=== PATIENT | female | born 1995 | race Caucasian/White ===

== ENCOUNTER 2016-09-22 12:04 | Emergency (ER) | payer BC ==
[2016-09-22 12:14] VITALS: O2SAT 100
[2016-09-22] MEDS ORDERED: Sodium Chloride 0.9% 1000 ML 1,000 ML IV STA (12:36)
[2016-09-22] MEDS ORDERED: Sodium Chloride 0.9% 1000 ML 1,000 ML ONE (12:40)
--- NOTE | 2016-09-22 12:43 | ERPHSYRPT ---
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 had a cookie for breakfast this morning. has had these episodes in the past--last one being 3 weeks ago. slight nauseated and diaphoretic and sob with episodes but denies any s/s besides 'a littel pressure' at epigastric area. skin warm and dry. Physician History: 20-year-old white female arrives with complaints of sudden onset of epigastric pain and chest pressure associated with shortness of breath lasting 5-10 minutes which came on sometime around 11:00 this afternoon while sitting at her desk Patient has no nausea no vomiting patient has had multiple episodes of this she has seen several doctors secondary to this she apparently recently had seen an director nicu Past medical history includes GERD, gallbladder disease, migraines occasional back pain Past surgical history includes cholecystectomy Social history occasional alcohol use Timing/Duration: today (around 11:00 this afternoon) Activities at Onset: other (sitting at desk) Quality: pressure Location: epigastric, other (epigastric and anterior chest) Chest Pain Radiation: no radiation Severity of Pain-Max: moderate Severity of Pain-Current: none Modifying Factors: Improves With: nothing Associated Symptoms: abdominal pain (epigastric pain), shortness of breath, No nausea, No vomiting, No palpitations, No heartburn, No cough, No hurts to breathe, No diaphoresis, No chills, No fever, No fatigue, No weakness, No swelling/lump in chest, No syncope, No headache Prior Chest Pain/Cardiac Workup: recently seen/treated (patient has been seen multiple timesfor same complaint) Nitro Today/Relief: no nitro taken today Aspirin Treatment Today: 81 mg x 4, provided by ED Allergies/Adverse Reactions: ibuprofen [From Advil] Allergy (Verified 09/22/16 12:14) Rash childrens advil Allergy (Uncoded 09/22/16 12:14) Rash Home Medications: Colesevelam HCl [Welchol] 1 tab PO DAILY 01/16/16 [History] Hx Tetanus, Diphtheria Vaccination/Date Given: Yes Hx Influenza Vaccination/Date Given: No Hx Pneumococcal Vaccination/Date Given: No Immunizations Up to Date: Yes - Review of Systems Constitutional: Weakness (patient states she felt very weak like she was going to pass out), No No Symptoms Eyes: No Symptoms Ears, Nose, & Throat: No Symptoms Respiratory: Dyspnea, No Cough, No Cyanosis, No Dyspnea on Exertion (ABEL), No Stridor, No Wheezing Cardiac: Chest Pain (substernal and epigastric pain) Abdominal/Gastrointestinal: Abdominal Pain (epigastric pain), No Nausea, No Vomiting, No Diarrhea, No Constipation, No Hematemesis, No Hematochezia, No Melena, No Dysphagia, No Appetite Changes Genitourinary Symptoms: No Dysuria Musculoskeletal: No Back Pain, No Neck Pain Skin: No Rash Neurological: Other, No Dizziness, No Focal Weakness, No Sensory Changes Psychological: No Symptoms Endocrine: No Symptoms All Other Systems: Reviewed and Negative - Past Medical History Pertinent Past Medical History: Yes Neurological History: Migraines ENT History: No Pertinent History Cardiac History: No Pertinent History Respiratory History: No Pertinent History Endocrine Medical History: No Pertinent History Musculoskeletal History: No Pertinent History GI Medical History: GERD, Gallbladder Disease History: No Pertinent History, Other Psycho-Social History: No Pertinent History Female Reproductive Disorders: Menstrual Problems Other Medical History: heavy periods has chronic uti - Past Surgical History Past Surgical History: Yes Neuro Surgical History: No Pertinent History Cardiac: No Pertinent History Respiratory: No Pertinent History Gastrointestinal: Cholecystectomy Genitourinary: No Pertinent History Musculoskeletal: No Pertinent History Female Surgical History: No Pertinent History - Social History Smoking Status: Never smoker Exposure to second hand smoke: No Drug Use: none Patient Lives Alone: No - Female History Hx Last Menstrual Period: current - Nursing Vital Signs Temperature: 97.9 F Temperature Source: Oral Pulse Rate: 94 Respiratory Rate: 18 Pain Intensity: 5 - Physical Exam General Appearance: no apparent distress, alert Eye Exam: PERRL/EOMI, eyes nml inspection Ears, Nose, Throat Exam: normal ENT inspection, moist mucous membranes Neck Exam: normal inspection, non-tender, supple, full range of motion Respiratory Exam: normal breath sounds, lungs clear, No respiratory distress Cardiovascular Exam: regular rate/rhythm, normal heart sounds Gastrointestinal/Abdomen Exam: soft, No tenderness, No mass Back Exam: normal inspection, No CVA tenderness, No vertebral tenderness Extremity Exam: normal inspection, normal range of motion Neurologic Exam: alert, oriented x 3, cooperative, train planner II-XII nml as tested, normal mood/affect, nml cerebellar function, sensation nml, No motor deficits, No sensory deficit, No disoriented, No confusion, No agitation, No uncooperative , No intoxicated appearance, No depressed mood/affect, No motor weakness, No facial droop, No slurred speech, No aphasia, No dysarthria, No abnormal gait, No abnormal cerebellar tests, No abnormal train planner II-XII Skin Exam: normal color, warm, dry SpO2 Interpretation: normal (100%) SpO2: 100 Oxygen Delivery: Room Air - Course Nursing assessment & vital signs reviewed: Yes EKG Interpreted by Me: RATE (99 bpm), Sinus Rhythm, NORMAL AXIS, Other (EKG: Normal sinus rhythm 99 bpm normal axis, no acute ST or T wave changes essentially normal EKG) - Radiology Exams Chest X-ray Interpretation: Discussed w/ radiologist, Other (portable chest: Normal heart, lungs, and bony thorax) Ordered Tests: Active Orders 24 hr Category Date Time Status Bottle Booth Attendant STAT Care 09/22/16 12:23 Active EKG-ER Only STAT Care 09/22/16 12:22 Active IV Insertion STAT Care 09/22/16 12:22 Active Orthostatic Vital Signs STAT Care 09/22/16 12:21 Active CHEST 1 VIEW (PORTABLE) Stat Exams 09/22/16 12:37 Completed AMYLASE Stat Lab 09/22/16 12:30 Completed CBC W DIFF Stat Lab 09/22/16 12:30 Completed CMP Stat Lab 09/22/16 12:30 Completed HCG QUALITATIVE,SERUM Stat Lab 09/22/16 12:30 Completed LIPASE Stat Lab 09/22/16 12:30 Completed TROPONIN Stat Lab 09/22/16 12:30 Completed TROPONIN Stat Lab 09/22/16 15:03 Completed Medication Summary Discontinued Medications Generic Name Dose Route Start Last Admin Trade Name Freq PRN Reason Stop Dose Admin Aspirin 324 mg 09/22/16 12:57 09/22/16 12:59 Baby Aspirin 81 Mg Chew PO 09/22/16 12:58 324 mg STAT ONE Administration Aspirin Confirm 09/22/16 12:59 Baby Aspirin 81 Mg Chew Administered 09/22/16 13:00 Dose 324 mg .ROUTE .STK-MED ONE Sodium Chloride 1,000 mls @ 999 mls/hr 09/22/16 12:36 09/22/16 12:42 Sodium Chloride 0.9% 1000 Ml IV 09/22/16 13:36 999 mls/hr .Q1H1M STA Administration Sodium Chloride Confirm 09/22/16 12:40 Sodium Chloride 0.9% 1000 Ml Administered 09/22/16 12:41 Dose 1,000 mls @ ud .ROUTE .STK-MED ONE Lab/Rad Data: Laboratory Result Diagrams 09/22/16 12:30 09/22/16 12:30 Laboratory Results 09/22/16 09/22/16 09/22/16 Range/Units 15:03 12:30 12:30 WBC (4.0-10.5) K/mm3 RBC (4.1-5.4) M/mm3 Hgb (12.0-16.0) gm/dl Hct (35-47) % MCV (78-100) fl MCH (26-32) pg MCHC (32-36) g/dl RDW (11.5-14.0) % Plt Count (150-450) K/mm3 MPV (6-9.5) fl Gran % (36.0-66.0) % Lymphocytes % (24.0-44.0) % Monocytes % (0.0-12.0) % Eosinophils % (0.00-5.0) % Basophils % (0.0-0.4) % Basophils # (0-0.4) Sodium 139 (136-145) mEq/L Potassium 3.7 (3.5-5.1) mEq/L Chloride 102 (98-107) mEq/L Carbon Dioxide 25.5 (21-32) mEq/L Anion Gap 14.8 (5-15) MEQ/L BUN 7 L (9-20) mg/dL Creatinine 0.84 (0.55-1.30) mg/dl Estimated GFR > 60 ML/MIN Glucose 89 (70-110) MG/DL Calcium 9.0 (8.5-10.1) mg/dL Total Bilirubin 0.4 (0.2-1.0) mg/dL AST 15 (15-37) U/L ALT 20 (12-78) U/L Alkaline Phosphatase 62 (46-116) U/L Troponin I < 0.017 < 0.017 (0.000-0.056) ng/ml Serum Total Protein 7.9 (6.4-8.2) gm/dL Albumin 4.1 (3.4-5.0) g/dL Amylase 50 (25-115) U/L Lipase 171 (73-393) U/L Serum , Qual NEGATIVE (Negative) 09/22/16 Range/Units 12:30 WBC 7.2 (4.0-10.5) K/mm3 RBC 4.30 (4.1-5.4) M/mm3 Hgb 10.1 L (12.0-16.0) gm/dl Hct 33.9 L (35-47) % MCV 78.8 (78-100) fl MCH 23.4 L (26-32) pg MCHC 29.8 L (32-36) g/dl RDW 16.9 H (11.5-14.0) % Plt Count 422 (150-450) K/mm3 MPV 11.5 H (6-9.5) fl Gran % 46.0 (36.0-66.0) % Lymphocytes % 46.3 H (24.0-44.0) % Monocytes % 6.4 (0.0-12.0) % Eosinophils % 0.7 (0.00-5.0) % Basophils % 0.6 (0.0-0.4) % Basophils # 0.04 (0-0.4) Sodium (136-145) mEq/L Potassium (3.5-5.1) mEq/L Chloride (98-107) mEq/L Carbon Dioxide (21-32) mEq/L Anion Gap (5-15) MEQ/L BUN (9-20) mg/dL Creatinine (0.55-1.30) mg/dl Estimated GFR ML/MIN Glucose (70-110) MG/DL Calcium (8.5-10.1) mg/dL Total Bilirubin (0.2-1.0) mg/dL AST (15-37) U/L ALT (12-78) U/L Alkaline Phosphatase (46-116) U/L Troponin I (0.000-0.056) ng/ml Serum Total Protein (6.4-8.2) gm/dL Albumin (3.4-5.0) g/dL Amylase (25-115) U/L Lipase (73-393) U/L Serum , Qual (Negative) - Progress Progress: improved Air Movement: fair Progress Note: 09/22/16 12:52 20-year-old white female who has had multiple episodes of epigastric and substernal pain which has been worked up by various physicians. Arrives with complaint of pain in the epigastric region and substernal area which began around 11:00 for (patient is not sure) lasting 5-10 minutes. Arrives without pain. Patient just recently had complained of having recurrence of her pain monitor shows no change I've offered patient morphine for her pain she states she does not want any now. Patient was mildly orthostatic she did state that she felt the like she was going to pass out earlier when she was having her pain. Patient is being given IV fluids troponin CBC CMP hCG are pending chest x-ray will be shot after hCG is obtained. 09/22/16 13:17 Patient pain-free at this time. Patient has had no arrhythmias on monitor. Troponin within normal limits. Will repeat troponin 3 hours from last draw. 09/22/16 15:34 Patient with no further complaints. Repeat troponin is negative. Will discharge. - Departure Time of Disposition: 15:35 Departure Disposition: Home Clinical Impression: Mild dehydration Chest pain Qualifiers: Chest pain type: unspecified Qualified Code(s): R07.9 - Chest pain, unspecified Condition: Fair Critical Care Time: No Additional Instructions: Return home. Plenty of fluids. Rest. Follow-up with your family doctor. Return for acute distress or for severe symptoms.
[2016-09-22 12:46] LABS: BASOPHIL % 0.6 % (0.0-0.4); Eosinophil % 0.7 % (0.00-5.0); Lymphocytes % 46.3 % (24.0-44.0); Mean Cell Volume 78.8 fl (78-100); Mean Platelet Volume 11.5 fl (6-9.5); Monocytes % 6.4 % (0.0-12.0); Platelet Count 422 K/mm3 (150-450); Red Cell Distribution Width 16.9 % (11.5-14.0); White Blood Count 7.2 K/mm3 (4.0-10.5)
[2016-09-22 12:47] LABS: Mean Corpuscular Hemoglobin 23.4 pg (26-32)
[2016-09-22] MEDS ORDERED: BABY ASPIRIN 81 MG CHEW PO ONE (12:57)
[2016-09-22] MEDS ORDERED: BABY ASPIRIN 81 MG CHEW ONE (12:59)
--- NOTE | 2016-09-22 13:00 | XRAY ---
Indication: Epigastric pain. Comparison: None Portable chest demonstrates normal heart, lungs, and bony thorax.
[2016-09-22 13:06] LABS: ALBUMIN 4.1 g/dL (3.4-5.0); ALKALINE PHOSPHATASE 62 U/L (46-116); ANION GAP 14.8 MEQ/L (5-15); BILIRUBIN,TOTAL 0.4 mg/dL (0.2-1.0); BLOOD UREA NITROGEN 7 mg/dL (9-20); CHLORIDE 102 mEq/L (98-107); Carbon Dioxide 25.5 mEq/L (21-32); Glucose 89 MG/DL (70-110); LIPASE 171 U/L (73-393); Potassium 3.7 mEq/L (3.5-5.1); SGOT/AST 15 U/L (15-37); SGPT/ALT 20 U/L (12-78); SODIUM 139 mEq/L (136-145); Total Protein 7.9 gm/dL (6.4-8.2)
[2016-09-22 13:10] LABS: TROPONIN < 0.017 ng/ml (0.000-0.056)
[2016-09-22 16:04] VITALS: BP 117/90; PULSE 91
== END 2016-09-22 16:05 | disposition home or self-care (01) ==
LOC: ED 12:04
DX: R07.89 Other chest pain (principal); E86.0 Dehydration; R10.13 Epigastric pain; R06.02 Shortness of breath
CPT/HCPCS: 36000; 36415; 71010; 80053; 82150; 83690; 84484; 84703; 85025; 93005; 93041; 96360; 99284; 99285; A9270-GY

== ENCOUNTER 2018-04-06 01:25 | Emergency (ER) | payer BC ==
--- NOTE | 2018-04-06 01:56 | ERPHSYRPT ---
- History of Present Illness Time Seen by Provider: 04/06/18 01:35 Historian: patient Exam Limitations: clinical condition Patient Subjective Stated Complaint: pt is alert and oriented. pt is ambulatory. pt comes in with c/o lower right abdomenal cramping. pt describes pain as a "pulling". pt was at work all night and began having cramping around 2330. pt is 9 weeks . pt denies vomitting, diarrhea, vaginal discharge or bleeding. pt bowel sounds present and active. Triage Nursing Assessment: see above Physician History: PATIENT IS A -1, PARA-0, -0, 9 WEEKS GESTATION WITH ULTRASOUND AT 03/21/2018 CONSISTED WITH INTRAUTERINE SINGLE UTERINE SAC OF 6 WEEKS- 5 DAYS GESTATION AND BILATERAL OVARIES NEGATIVE. PATIENT COMPLAINS OF LOWER MID ABDOMINAL PAIN, ASSOCIATED WITH NAUSEA, FREQUENCY, URGENCY AND DYSURIA. DENIES FEVER, EMESIS, DIARRHEA FLANK PAIN, VAGINAL BLEEDING OR DISCHARGE. Timing/Duration: day(s) Activities at Onset: none Quality: throbbing Abdominal Pain Onset Location: RLQ, suprapubic Pain Radiation: no radiation Severity of Pain-Max: moderate Severity of Pain-Current: moderate Associated Symptoms: nausea Previous symptoms: no prior history Allergies/Adverse Reactions: ibuprofen [From Advil] Allergy (Verified 09/22/16 12:14) Rash Penicillins Allergy (Verified 04/06/18 01:41) Anaphylactic Reaction childrens advil Allergy (Uncoded 09/22/16 12:14) Rash Home Medications: Vits W-Ca,Fe,FA(<1Mg) [] 1 tab PO DAILY 04/06/18 [History] Hx Tetanus, Diphtheria Vaccination/Date Given: Yes Hx Influenza Vaccination/Date Given: No Hx Pneumococcal Vaccination/Date Given: No Immunizations Up to Date: Yes - Review of Systems Constitutional: No Fever, No Chills Eyes: No Symptoms Ears, Nose, & Throat: No Symptoms Respiratory: No Symptoms, No Cough, No Dyspnea Cardiac: No Symptoms, No Chest Pain, No Edema, No Syncope Abdominal/Gastrointestinal: No Abdominal Pain, No Nausea, No Vomiting, No Diarrhea Genitourinary Symptoms: Dysuria, Frequency, Urgency Musculoskeletal: No Back Pain, No Neck Pain Skin: No Rash Neurological: No Dizziness, No Focal Weakness, No Sensory Changes Psychological: No Symptoms Endocrine: No Symptoms All Other Systems: Reviewed and Negative - Past Medical History Pertinent Past Medical History: Yes Neurological History: Migraines ENT History: No Pertinent History Cardiac History: No Pertinent History Respiratory History: No Pertinent History Endocrine Medical History: No Pertinent History Musculoskeletal History: No Pertinent History GI Medical History: GERD, Gallbladder Disease History: No Pertinent History, Other Psycho-Social History: No Pertinent History Female Reproductive Disorders: Menstrual Problems Other Medical History: heavy periods has chronic uti - Past Surgical History Past Surgical History: Yes Neuro Surgical History: No Pertinent History Cardiac: No Pertinent History Respiratory: No Pertinent History Gastrointestinal: Cholecystectomy Genitourinary: No Pertinent History Musculoskeletal: No Pertinent History Female Surgical History: No Pertinent History Other Surgical History: EGD. - Social History Smoking Status: Never smoker Exposure to second hand smoke: Yes Drug Use: none Patient Lives Alone: No - Female History Hx Now: Yes Expected Date of Delivery: 11/09/17 - Nursing Vital Signs Nursing Vital Signs: Initial Vital Signs Pulse Rate 89 04/06/18 01:26 Respiratory Rate 18 04/06/18 01:26 Blood Pressure 117/81 04/06/18 01:26 O2 Sat by Pulse Oximetry 100 04/06/18 01:26 Pain Scale Pain Intensity 5 - Physical Exam General Appearance: no apparent distress, alert Eye Exam: PERRL/EOMI, eyes nml inspection Ears, Nose, Throat Exam: normal ENT inspection, pharynx normal, moist mucous membranes Neck Exam: normal inspection, non-tender, supple, full range of motion Respiratory Exam: normal breath sounds, lungs clear, No respiratory distress Cardiovascular Exam: regular rate/rhythm, normal heart sounds Gastrointestinal/Abdomen Exam: soft, normal bowel sounds, tenderness ( TENDERNESS RIGHT LATERAL SUPRAPUBIC,), rebound, No mass Pelvic Exam: normal external exam, other (UTERUS ENLARGED TO 9 WEEKS, RIGHT ADNEXAL TENDERNESS) Back Exam: normal inspection, normal range of motion, No CVA tenderness, No vertebral tenderness Extremity Exam: normal inspection, normal range of motion, pelvis stable Neurologic Exam: alert, oriented x 3, cooperative, normal mood/affect, nml cerebellar function, sensation nml, No motor deficits Skin Exam: normal color, warm, dry SpO2: 100 Oxygen Delivery: Room Air Ordered Tests: Active Orders 24 hr Category Date Time Status CBC W DIFF Stat Lab 04/06/18 02:30 Completed UA W/RFX UR CULTURE Stat Lab 04/06/18 02:13 Completed Medication Summary Generic Name Dose Route Start Last Admin Trade Name Frankie PRN Reason Stop Dose Admin Acetaminophen 650 mg 04/06/18 03:34 Tylenol 325 Mg PO 04/06/18 03:35 STAT STA Sodium Chloride 1,000 mls @ 200 mls/hr 04/06/18 02:30 04/06/18 02:41 Sodium Chloride 0.9% 1000 Ml IV 05/06/18 02:29 200 mls/hr .Q5H TOM Administration Discontinued Medications Generic Name Dose Route Start Last Admin Trade Name Frankie PRN Reason Stop Dose Admin Ondansetron HCl 4 mg 04/06/18 02:21 04/06/18 02:41 Zofran 4 Mg/2 Ml Vial IV 04/06/18 02:22 4 mg STAT ONE Administration Ondansetron HCl Confirm 04/06/18 02:36 Zofran 4 Mg/2 Ml Vial Administered 04/06/18 02:37 Dose 4 mg .ROUTE .STK-MED ONE Lab/Rad Data: Laboratory Result Diagrams 04/06/18 02:30 Laboratory Results 04/06/18 04/06/18 Range/Units 02:30 02:13 WBC 10.8 H (4.0-10.5) K/mm3 RBC 3.56 L (4.1-5.4) M/mm3 Hgb 8.9 L (12.0-16.0) gm/dl Hct 28.5 L (35-47) % MCV 80.1 (78-100) fl MCH 25.0 L (26-32) pg MCHC 31.2 L (32-36) g/dl RDW 17.4 H (11.5-14.0) % Plt Count 311 (150-450) K/mm3 MPV 11.4 H (6-9.5) fl Gran % 62.8 (36.0-66.0) % Eos # (Auto) 0.06 (0-0.5) Absolute Lymphs (auto) 3.10 (1.0-4.6) Absolute Monos (auto) 0.83 (0.0-1.3) Lymphocytes % 28.7 (24.0-44.0) % Monocytes % 7.7 (0.0-12.0) % Eosinophils % 0.6 (0.00-5.0) % Basophils % 0.2 (0.0-0.4) % Absolute Granulocytes 6.81 (1.4-6.9) Basophils # 0.02 (0-0.4) Urine Color YELLOW (YELLOW) Urine Appearance CLEAR (CLEAR) Urine pH 7.0 (5-6) Ur Specific [place] 1.011 (1.005-1.025) Urine Protein NEGATIVE (Negative) Urine Ketones TRACE (NEGATIVE) Urine Blood NEGATIVE (0-5) Brent/ul Urine Nitrite NEGATIVE (NEGATIVE) Urine Bilirubin NEGATIVE (NEGATIVE) Urine Urobilinogen NORMAL (0-1) mg/dL Ur Leukocyte Esterase TRACE (NEGATIVE) Urine WBC (Auto) 6-10 (0-5) /HPF Urine RBC (Auto) NONE SEEN (0-2) /HPF U Epithel Cells (Auto) RARE (FEW) /HPF Urine Bacteria (Auto) NONE SEEN (NEGATIVE) /HPF Amorphous Crystals FEW (NEGATIVE) /HPF Urine Mucus (Auto) SLIGHT (NEGATIVE) /HPF Urine Culture Reflexed NO (NO) Urine Glucose NEGATIVE (NEGATIVE) mg/dL - Progress Progress: pain not gone completely Progress Note: 04/06/18 03:38 IV NORMAL SALINE 200ML/HR, ZOFRAN 4MG IV, ORAL TYLENOL 650MG, MACROBID 100MG Counseled pt/family regarding: lab results, diagnosis, need for follow-up, rad results - Departure Time of Disposition: 04:00 Departure Disposition: Home Clinical Impression: URINARY TRACT INFECTION, Condition: Stable Critical Care Time: No Referrals: RAGHAV WOOD [Primary Care Provider] - Additional Instructions: ANTIBIOTIC MACROBID 100MG TWICE DAILY FOR 10 DAYS. TYLENOL EVERY 4 HOURS NEEDED FOR PAIN. FOLLOWUP WITH DR WOOD TODAY. RETURN TO EMERGENCY ROOM FOR INCREASING PAIN, ONSET OF VOMITING OR FEVER. Prescriptions: Nitrofurantoin Macro 100 mg [Macrobid 100MG Capsule] 100 mg PO BID #20 capsule
[2018-04-06] MEDS ORDERED: Zofran 4 MG/2 ML VIAL IV ONE (02:21)
[2018-04-06 02:24] LABS: Appearance CLEAR (CLEAR); Bilirubin NEGATIVE (NEGATIVE); Blood NEGATIVE Ery/ul (0-5); Glucose NEGATIVE (NEGATIVE); Ketones TRACE (NEGATIVE); Leukocyte Esterase TRACE (NEGATIVE); Nitrite NEGATIVE (NEGATIVE); Protein,Urine Dip NEGATIVE (Negative); Specific Gravity 1.011 (1.005-1.025); Urobilinogen NORMAL mg/dL (0-1)
[2018-04-06] MEDS ORDERED: Sodium Chloride 0.9% 1000 ML 1,000 ML IV SCH (02:30)
[2018-04-06] MEDS ORDERED: Zofran 4 MG/2 ML VIAL ONE (02:36)
[2018-04-06] MEDS ORDERED: Sodium Chloride 0.9% 1000 ML 1,000 ML ONE (02:36)
[2018-04-06 02:40] LABS: BASOPHIL % 0.2 % (0.0-0.4); Basophil (Absolute #) 0.02 (0-0.4); Eosinophil % 0.6 % (0.00-5.0); Eosinophil (Absolute #) 0.06 (0-0.5); Granulocyte Absolute (ANC) 6.81 (1.4-6.9); Granulocytes % 62.8 % (36.0-66.0); Hematocrit 28.5 % (35-47); Hemoglobin 8.9 gm/dl (12.0-16.0); Lymphocytes % 28.7 % (24.0-44.0); Mean Cell Volume 80.1 fl (78-100); Mean Corpuscular Hgb Concent. 31.2 g/dl (32-36); Mean Platelet Volume 11.4 fl (6-9.5); Monocyte (Absolute #) 0.83 (0.0-1.3); Monocytes % 7.7 % (0.0-12.0); Platelet Count 311 K/mm3 (150-450); Red Blood Count 3.56 M/mm3 (4.1-5.4); Red Cell Distribution Width 17.4 % (11.5-14.0); White Blood Count 10.8 K/mm3 (4.0-10.5)
[2018-04-06] MEDS ORDERED: TYLENOL 325 MG PO STA (03:34)
[2018-04-06] MEDS ORDERED: Macrobid 100MG Capsule PO ONE (03:35)
[2018-04-06] MEDS ORDERED: Macrobid 100MG Capsule ONE (03:38)
[2018-04-06] MEDS ORDERED: TYLENOL 325 MG ONE (03:38)
[2018-04-06 03:43] VITALS: O2SAT 100
[2018-04-06 04:00] VITALS: BP 104/70; PULSE 76
== END 2018-04-06 04:07 | disposition home or self-care (01) ==
LOC: ED 01:25
DX: O23.41 Unspecified infection of urinary tract in pregnancy, first trimester (principal); Z3A.09 9 weeks gestation of pregnancy
CPT/HCPCS: 36415; 81001; 85025; 96360; 96374; 99284; J2405; A9270-GY

== ENCOUNTER 2018-07-31 13:00 | Observation (INO) | payer BC ==
[2018-07-31 15:13] LABS: Appearance CLOUDY (CLEAR); Bacteria RARE /HPF (NEGATIVE); Bilirubin NEGATIVE (NEGATIVE); Blood SMALL Ery/ul (0-5); Epithelial Cells RARE /HPF (FEW); Glucose 50 mg/dL (NEGATIVE); Ketones NEGATIVE (NEGATIVE); Leukocyte Esterase SMALL (NEGATIVE); Mucus SLIGHT /HPF (NEGATIVE); Nitrite NEGATIVE (NEGATIVE); Protein,Urine Dip NEGATIVE (Negative); RBC 0-2 /HPF (0-2); Specific Gravity 1.013 (1.005-1.025); Urobilinogen NEGATIVE mg/dL (0-1); WBC 0-2 /HPF (0-5)
--- NOTE | 2018-07-31 16:24 | XRAY ---
Indication: well-being. Round vaginal discharge. Two-dimensional OB ultrasound performed. Comparison: June 07, 2016. Again there is a single viable intrauterine now in breech presentation. Normal four-chamber heart with heart rate 145 BPM. anatomy including including umbilical cord previously documented. Posterior placenta without abruption/previa. BPD measures 6.07 cm corresponding to 24 weeks 5 days. HC measures 22.77 cm corresponding to 24 weeks 6 days. AC measures 20.64 cm corresponding to 25 weeks 2 days. FL measures 4.67 cm corresponding to 25 weeks 4 days. SULEMA is 14.4 cm. Impression: Again single viable intrauterine with mean gestational age 25 weeks 1 day. Normal progression of . No new/acute findings.
[2018-07-31 17:57] VITALS: BP 91/63; PULSE 96
== END 2018-07-31 16:30 | disposition home or self-care (01) ==
LOC: UNDOADMOB 13:00 → MED SURG 13:00 → UNDODISOB 16:30
PROVIDERS: ADMIT Family Medicine; ATTEND Family Medicine
DX: Z34.02 Encounter for supervision of normal first pregnancy, second trimester (principal)
CPT/HCPCS: 76805; 81001; 87086; G0378

== ENCOUNTER 2018-09-08 09:53 | Observation (INO) | payer BC ==
[2018-09-08] MEDS ORDERED: Lactated Ringers 1,000 ML IV ONE (11:14)
[2018-09-08 11:53] LABS: Hematocrit 24.9 % (35-47); Hemoglobin 7.6 gm/dl (12.0-16.0); Mean Cell Volume 83.3 fl (78-100); Mean Corpuscular Hemoglobin 25.4 pg (26-32); Mean Corpuscular Hgb Concent. 30.5 g/dl (32-36); Mean Platelet Volume 9.8 fl (6-9.5); Platelet Count 250 K/mm3 (150-450); Red Blood Count 2.99 M/mm3 (4.1-5.4); Red Cell Distribution Width 15.3 % (11.5-14.0); White Blood Count 10.3 K/mm3 (4.0-10.5)
[2018-09-08 12:06] LABS: ALBUMIN 3.2 g/dL (3.5-5.0); ALKALINE PHOSPHATASE 87 U/L (38-126); ANION GAP 11.9 MEQ/L (5-15); BLOOD UREA NITROGEN 4 mg/dL (7-17); CHLORIDE 106 mmol/L (98-107); Calcium 8.7 mg/dL (8.4-10.2); Carbon Dioxide 23 mmol/L (22-30); Creatinine 1 0.56 mg/dL (0.52-1.04); Glucose 79 mg/dL (74-106); Potassium 3.8 mmol/L (3.5-5.1); SGOT/AST 19 U/L (14-36); SGPT/ALT 12 U/L (0-35); SODIUM 137 mmol/L (137-145); Total Protein 6.4 g/dL (6.3-8.2)
[2018-09-08 12:11] LABS: BAND 5 % (0.0-2.0); Basophil 1 % (0.0-1.0); Lymphocytes 25 % (24-44); Monocyte 4 % (0.0-12.0); Neutrophils 65 % (36.0-66.0); Total Cells Counted 100
[2018-09-08 12:13] LABS: Hypochromia 1+; Platelet Estimate NORMAL (NORMAL); Polychromasia 1+
[2018-09-08 12:36] LABS: Appearance SLIGHTLY CLOUDY (CLEAR); Bacteria FEW /HPF (NEGATIVE); Bilirubin NEGATIVE (NEGATIVE); Blood NEGATIVE Ery/ul (0-5); Epithelial Cells FEW /HPF (FEW); Glucose NEGATIVE (NEGATIVE); Ketones NEGATIVE (NEGATIVE); Leukocyte Esterase LARGE (NEGATIVE); Mucus SLIGHT /HPF (NEGATIVE); Nitrite NEGATIVE (NEGATIVE); Protein,Urine Dip NEGATIVE (Negative); RBC 0-2 /HPF (0-2); Specific Gravity 1.014 (1.005-1.025); Urobilinogen NEGATIVE mg/dL (0-1); WBC 26-50 /HPF (0-5)
[2018-09-08] MEDS: Lactated Ringers 1,000 ML IV SCH ×2 (12:58→21:33)
[2018-09-08] MEDS ORDERED: BRETHINE 1 MG/ML SQ ONE (13:14)
[2018-09-08] MEDS: Phenergan 25 MG INJ IV PRN (15:05)
--- NOTE | 2018-09-08 15:27 | XRAY ---
Indication: labor. Evaluate cervical length. Two-dimensional OB ultrasound performed. Comparison: July 31, 2018. Again there is a single viable intrauterine now in cephalic presentation. heart rate 138 BPM. anatomy including including umbilical cord previously documented. Visualized stomach and bladder are unremarkable. Posterior placenta without abruption/previa. Cervix is closed measuring 4.2 cm in length. BPD measures 8.26 cm corresponding to 33 weeks 2 days. HC measures 29.13 cm corresponding to 32 weeks 1 day. AC measures 25.66 cm corresponding to 29 weeks 6 days. FL measures 5.94 cm corresponding to 31 weeks 0 day. SULEMA is 8.5 cm. Impression: Again single viable intrauterine with mean gestational age 31 weeks 4 days. Normal progression of . No new/acute findings. Cervical length is 4.2 cm.
[2018-09-08] MEDS: ROCEPHIN 1 Gm-D5w 50 ml Bag** 1 G/50 ML IVPB IV SCH ×2 (15:44→18:00)
[2018-09-08] MEDS ORDERED: PROCARDIA 10 MG PO ONE (16:14)
[2018-09-08] MEDS: PROCARDIA 10 MG PO SCH (21:07)
[2018-09-08] MEDS: TYLENOL 325 MG PO PRN (21:12)
[2018-09-09] MEDS: Phenergan 25 MG INJ IV PRN (01:43)
[2018-09-09] MEDS: TYLENOL 325 MG PO PRN (03:18)
[2018-09-09] MEDS: Lactated Ringers 1,000 ML IV SCH (05:43)
[2018-09-09] MEDS: PROCARDIA 10 MG PO SCH ×3 (09:14→14:28)
[2018-09-09 09:47] VITALS: PULSE 85
[2018-09-09] MEDS: ROCEPHIN 1 Gm-D5w 50 ml Bag** 1 G/50 ML IVPB IV SCH (11:34)
[2018-09-09 12:51] LABS: ANION GAP 9.8 MEQ/L (5-15); BLOOD UREA NITROGEN 3 mg/dL (7-17); CHLORIDE 109 mmol/L (98-107); Calcium 8.2 mg/dL (8.4-10.2); Carbon Dioxide 22 mmol/L (22-30); Creatinine 1 0.49 mg/dL (0.52-1.04); Glucose 72 mg/dL (74-106); Potassium 3.5 mmol/L (3.5-5.1); SODIUM 137 mmol/L (137-145)
[2018-09-09 13:12] LABS: Hematocrit 22.1 % (35-47); Mean Cell Volume 85.3 fl (78-100); Mean Corpuscular Hgb Concent. 29.4 g/dl (32-36); Mean Platelet Volume 10.5 fl (6-9.5); Platelet Count 229 K/mm3 (150-450); Red Blood Count 2.59 M/mm3 (4.1-5.4); Red Cell Distribution Width 15.2 % (11.5-14.0); White Blood Count 6.8 K/mm3 (4.0-10.5)
[2018-09-09 13:15] LABS: Hemoglobin 6.5 gm/dl (12.0-16.0)
[2018-09-09] MEDS ORDERED: Celestone Soluspan 6MG/ML IM ONE (13:32)
[2018-09-09 14:06] VITALS: BP 98/54
[2018-09-09 16:22] LABS: Lymphocytes 33 % (24-44); Monocyte 5 % (0.0-12.0); Neutrophils 62 % (36.0-66.0); Platelet Estimate NORMAL (NORMAL); Total Cells Counted 100
[2018-09-09 16:23] LABS: Hypochromia 1+; Microcytosis 1+
== END 2018-09-09 16:45 | disposition home or self-care (01) ==
LOC: OB 09:53
PROVIDERS: ADMIT Family Medicine; ATTEND Family Medicine
DX: O23.43 Unspecified infection of urinary tract in pregnancy, third trimester (principal); Z3A.31 31 weeks gestation of pregnancy; R10.13 Epigastric pain; R10.11 Right upper quadrant pain
CPT/HCPCS: 36415; 76805; 80048; 80053; 81001; 85025; 87086; G0378; J0696; J0702; J2550; A9270-GY

== ENCOUNTER 2018-09-18 16:42 | Observation (INO) | payer BC ==
[2018-09-18] MEDS ORDERED: Sodium Chloride 0.9% 1000 ML 1,000 ML IV STA (17:19)
[2018-09-18] MEDS ORDERED: MORPHINE SULFATE 10 MG/ML IV ONE (18:46)
[2018-09-18] MEDS: Lactated Ringers 1,000 ML IV SCH (18:49)
[2018-09-18] MEDS: Phenergan 25 MG INJ IV ONE ×2 (18:49→18:58)
[2018-09-18 19:12] LABS: Appearance SLIGHTLY CLOUDY (CLEAR); Bacteria MODERATE /HPF (NEGATIVE); Bilirubin NEGATIVE (NEGATIVE); Blood NEGATIVE Ery/ul (0-5); Epithelial Cells MODERATE /HPF (FEW); Glucose 50 mg/dL (NEGATIVE); Ketones NEGATIVE (NEGATIVE); Leukocyte Esterase LARGE (NEGATIVE); Nitrite NEGATIVE (NEGATIVE); Protein,Urine Dip NEGATIVE (Negative); RBC 0-2 /HPF (0-2); Specific Gravity 1.014 (1.005-1.025); Urobilinogen NEGATIVE mg/dL (0-1); WBC 26-50 /HPF (0-5)
[2018-09-18] MEDS ORDERED: Zofran 4 MG/2 ML VIAL IV PRN (19:34)
[2018-09-18] MEDS: Maxipime 2 GM** 2 G in Dextrose 5%/Water IV Soln. 100ML PLUS BAG 100 ML IV SCH (19:57)
[2018-09-18] MEDS ORDERED: PROTONIX 40 MG IV IV ONE (20:22)
[2018-09-18 20:52] VITALS: O2SAT 99
[2018-09-18 21:02] LABS: ALBUMIN 2.9 g/dL (3.5-5.0); ALKALINE PHOSPHATASE 80 U/L (38-126); ANION GAP 9.4 MEQ/L (5-15); BLOOD UREA NITROGEN 4 mg/dL (7-17); CHLORIDE 108 mmol/L (98-107); Calcium 8.6 mg/dL (8.4-10.2); Carbon Dioxide 22 mmol/L (22-30); Creatinine 1 0.46 mg/dL (0.52-1.04); Glucose 99 mg/dL (74-106); Potassium 3.8 mmol/L (3.5-5.1); SGOT/AST 21 U/L (14-36); SGPT/ALT 17 U/L (0-35); SODIUM 135 mmol/L (137-145); Total Protein 5.9 g/dL (6.3-8.2)
[2018-09-18] MEDS: PROCARDIA 10 MG PO SCH (21:51)
[2018-09-19] MEDS: Maxipime 2 GM** 2 G in Dextrose 5%/Water IV Soln. 100ML PLUS BAG 100 ML IV SCH ×2 (03:32→11:53)
[2018-09-19] MEDS: Lactated Ringers 1,000 ML IV SCH (03:32)
[2018-09-19] MEDS: PROCARDIA 10 MG PO SCH (10:53)
[2018-09-19 12:58] VITALS: BP 92/57; PULSE 90
[2018-09-20 12:29] LABS: Hematocrit 27.5 % (35-47); Hemoglobin 8.3 gm/dl (12.0-16.0); Mean Cell Volume 91.1 fl (78-100); Mean Corpuscular Hgb Concent. 30.2 g/dl (32-36); Mean Platelet Volume 10.9 fl (6-9.5); Platelet Count 269 K/mm3 (150-450); Red Blood Count 3.02 M/mm3 (4.1-5.4); Red Cell Distribution Width 23.2 % (11.5-14.0); White Blood Count 11.2 K/mm3 (4.0-10.5)
[2018-09-20 12:46] LABS: Mean Corpuscular Hemoglobin 27.4 pg (26-32)
[2018-09-20 13:54] LABS: BAND 1 % (0.0-2.0); Lymphocytes 28 % (24-44); Monocyte 2 % (0.0-12.0); Neutrophils 69 % (36.0-66.0); Nucleated Red Blood Cell 2 %; Total Cells Counted 100
[2018-09-20 13:55] LABS: ANISOCYTOSIS 2+; Basophilic Stippling RARE; Platelet Estimate NORMAL (NORMAL); Polychromasia 2+
[2018-09-20 13:56] LABS: Poikilocytosis 1+; Toxic Granulation 1+
--- NOTE | 2018-09-20 14:03 | XRAY ---
Indication: Evaluate cervical length. Limited OB ultrasound performed to evaluate cervical length. Cervix is closed measuring 3.7 cm in length.
== END 2018-09-19 13:08 | disposition home or self-care (01) ==
LOC: OB 16:42
PROVIDERS: ADMIT Family Medicine; ATTEND Family Medicine
DX: O23.43 Unspecified infection of urinary tract in pregnancy, third trimester (principal); Z3A.33 33 weeks gestation of pregnancy
CPT/HCPCS: 36415; 59025; 80053; 81001; 85025; 87086; G0378; 76815; J0692; J2270; A9270-GY

== ENCOUNTER 2018-09-28 00:45 | Observation (INO) | payer BC ==
[2018-09-28 01:12] VITALS: O2SAT 100
[2018-09-28 01:20] LABS: Amphetamine,Urine NEGATIVE (NEGATIVE); Barbiturate,Urine NEGATIVE (NEGATIVE); Benzodiazepine,Urine NEGATIVE (NEGATIVE); Cocaine,Urine NEGATIVE (NEGATIVE); Methadone,Urine NEGATIVE (NEGATIVE); Opiate,Urine NEGATIVE (NEGATIVE); PCP,Urine NEGATIVE (NEGATIVE); THC,Urine NEGATIVE (NEGATIVE)
[2018-09-28 01:23] LABS: Appearance CLOUDY (CLEAR); Bilirubin NEGATIVE (NEGATIVE); Blood NEGATIVE Ery/ul (0-5); Epithelial Cells RARE /HPF (FEW); Glucose NEGATIVE (NEGATIVE); Ketones NEGATIVE (NEGATIVE); Leukocyte Esterase TRACE (NEGATIVE); Mucus SLIGHT /HPF (NEGATIVE); Nitrite NEGATIVE (NEGATIVE); Protein,Urine Dip NEGATIVE (Negative); Specific Gravity 1.009 (1.005-1.025); Urobilinogen NEGATIVE mg/dL (0-1)
[2018-09-28] MEDS ORDERED: TYLENOL 325 MG PO PRN (02:15)
[2018-09-28] MEDS ORDERED: BRETHINE 1 MG/ML SQ ONE ×2 (02:16→05:56)
[2018-09-28] MEDS ORDERED: Sodium Chloride 0.9% 1000 ML 1,000 ML IV STA (02:18)
[2018-09-28] MEDS ORDERED: Lactated Ringers 1,000 ML IV SCH (02:30)
--- NOTE | 2018-09-28 09:18 | XRAY ---
Indication: Back pain. 34 weeks . Two-dimensional renal sonogram performed. Comparison: None Both kidneys normal in reniform shape. Right kidney measures 9.3 x 4.2 x 4.6 cm and the left measures 8.9 x 4.2 x 4.7 cm. No solid/cystic renal mass or perinephric fluid. Cortical medullary differentiation preserved without cortical thinning. Images of the urinary bladder grossly unremarkable with normal bilateral ureteral jets. Impression: Negative renal sonogram.
[2018-09-28 09:40] VITALS: BP 96/51; PULSE 91
== END 2018-09-28 09:30 | disposition home or self-care (01) ==
LOC: OB 00:45
PROVIDERS: ADMIT Family Medicine; ATTEND Family Medicine
DX: Z34.03 Encounter for supervision of normal first pregnancy, third trimester (principal)
CPT/HCPCS: 76770; 80307; 81001; 83986; G0378; A9270-GY

== ENCOUNTER 2018-10-21 17:11 | Observation (INO) | payer BC ==
[2018-10-21 18:38] LABS: Appearance SLIGHTLY CLOUDY (CLEAR); Bacteria RARE /HPF (NEGATIVE); Bilirubin NEGATIVE (NEGATIVE); Blood NEGATIVE Ery/ul (0-5); Epithelial Cells RARE /HPF (FEW); Glucose NEGATIVE (NEGATIVE); Ketones NEGATIVE (NEGATIVE); Leukocyte Esterase MODERATE (NEGATIVE); Nitrite NEGATIVE (NEGATIVE); Protein,Urine Dip NEGATIVE (Negative); Specific Gravity 1.004 (1.005-1.025); Urobilinogen NEGATIVE mg/dL (0-1)
[2018-10-21 19:01] LABS: Amphetamine,Urine NEGATIVE (NEGATIVE); Barbiturate,Urine NEGATIVE (NEGATIVE); Benzodiazepine,Urine NEGATIVE (NEGATIVE); Cocaine,Urine NEGATIVE (NEGATIVE); Methadone,Urine NEGATIVE (NEGATIVE); Opiate,Urine NEGATIVE (NEGATIVE); PCP,Urine NEGATIVE (NEGATIVE); THC,Urine NEGATIVE (NEGATIVE)
[2018-10-21 19:31] VITALS: O2SAT 99
[2018-10-22 01:39] VITALS: BP 109/60; PULSE 77
== END 2018-10-22 01:30 | disposition home or self-care (01) ==
LOC: OB 17:11
PROVIDERS: ADMIT Family Medicine; ATTEND Family Medicine
DX: Z34.03 Encounter for supervision of normal first pregnancy, third trimester (principal)
CPT/HCPCS: 80307; 81001; G0378

== ENCOUNTER 2018-10-26 11:17 | Observation (INO) | payer BC ==
[2018-10-26] MEDS ORDERED: Lactated Ringers 1,000 ML IV ONE (11:36)
--- NOTE | 2018-10-26 12:23 | XRAY ---
Indication: Evaluate SULEMA. well-being. Limited OB ultrasound performed to evaluate SULEMA. heart rate is 150 BPM. Four-quadrant SULEMA is 14.1 cm. This was previously 12 cm on October 16, 2018 exam.
[2018-10-26 16:41] VITALS: BP 107/70; PULSE 127
== END 2018-10-26 16:39 | disposition home or self-care (01) ==
LOC: MED SURG 11:17 → UNDOADMOB 11:17 → UNDODISOB 16:39
PROVIDERS: ADMIT Family Medicine; ATTEND Family Medicine
DX: Z34.03 Encounter for supervision of normal first pregnancy, third trimester (principal)
CPT/HCPCS: 59025; 76815; G0378

== ENCOUNTER 2018-11-01 09:59 | Inpatient (IN) | payer BC ==
[2018-11-01 11:59] LABS: Amphetamine,Urine NEGATIVE (NEGATIVE); Barbiturate,Urine NEGATIVE (NEGATIVE); Benzodiazepine,Urine NEGATIVE (NEGATIVE); Cocaine,Urine NEGATIVE (NEGATIVE); Methadone,Urine NEGATIVE (NEGATIVE); Opiate,Urine NEGATIVE (NEGATIVE); PCP,Urine NEGATIVE (NEGATIVE); THC,Urine NEGATIVE (NEGATIVE)
[2018-11-01] MEDS ORDERED: XYLOCAINE 1% HCL 20 ML MDV IJ PRN (15:09)
[2018-11-01 15:19] LABS: Hematocrit 35.1 % (35-47); Hemoglobin 11.5 gm/dl (12.0-16.0); Mean Cell Volume 91.9 fl (78-100); Mean Corpuscular Hemoglobin 30.1 pg (26-32); Mean Corpuscular Hgb Concent. 32.8 g/dl (32-36); Mean Platelet Volume 10.8 fl (6-9.5); Platelet Count 224 K/mm3 (150-450); Red Blood Count 3.82 M/mm3 (4.1-5.4); Red Cell Distribution Width 21.2 % (11.5-14.0); White Blood Count 11.4 K/mm3 (4.0-10.5)
[2018-11-01] MEDS ORDERED: Lactated Ringers 1,000 ML IV SCH (15:30)
[2018-11-01] MEDS ORDERED: PITOCIN 30 UNITS/ LR 500 ML 500 ML IV SCH ×2 (15:30→23:30)
[2018-11-01 16:26] LABS: BAND 1 % (0.0-2.0); Eosinophil 1 % (0.00-3.0); Lymphocytes 18 % (24-44); Monocyte 4 % (0.0-12.0); Neutrophils 76 % (36.0-66.0); Total Cells Counted 100
[2018-11-01 16:27] LABS: ANISOCYTOSIS 2+; Platelet Estimate NORMAL (NORMAL); Poikilocytosis 1+; Toxic Granulation 1+
[2018-11-01] MEDS ORDERED: Ephedrine Sulfate 50 MG/ML IV PRN (20:32)
[2018-11-01] MEDS ORDERED: OB EPIDURAL NAROPIN/SUFENTANIL IN NACL EPIDURAL PRN (20:32)
[2018-11-01] MEDS ORDERED: Lactated Ringers 1,000 ML IV ONE ×2 (20:32→21:31)
[2018-11-01] MEDS ORDERED: XYLOCAINE 2%/Epi 1:200000 20ML VIAL MPF ONE (20:45)
[2018-11-01] MEDS ORDERED: XYLOCAINE 2%/Epi 1:200000 20ML VIAL MPF IJ SCH (21:00)
[2018-11-01] MEDS ORDERED: BRETHINE 1 MG/ML SQ PRN (23:11)
[2018-11-02] MEDS ORDERED: Dermoplast Spray TP PRN (04:49)
[2018-11-02] MEDS ORDERED: TYLENOL EXTRA STRENGTH 500 MG PO PRN (04:49)
[2018-11-02] MEDS ORDERED: M-M-R II Vaccine With Diluent SQ ONE (04:49)
[2018-11-02] MEDS ORDERED: Mylicon 80MG PO PRN (04:49)
[2018-11-02] MEDS ORDERED: Anucort-HC SUPPOSITORY PR PRN (04:49)
[2018-11-02] MEDS ORDERED: Restoril 15 MG PO PRN (04:49)
[2018-11-02] MEDS ORDERED: Ambien 10 MG PO PRN (04:49)
[2018-11-02] MEDS ORDERED: Dulcolax 10 MG SUPP PR PRN (04:49)
[2018-11-02] MEDS ORDERED: LANSINOH 40 GM TOP PRN (04:49)
[2018-11-02] MEDS ORDERED: CORTISONE 1% CREAM TP PRN (04:49)
[2018-11-02] MEDS ORDERED: TUCKS TP PRN (04:49)
[2018-11-02] MEDS: NORCO 5/325 MG PO PRN ×2 (04:54→16:54)
[2018-11-02] MEDS ORDERED: Erythromycin 1 GM ONE (05:02)
[2018-11-02] MEDS ORDERED: Vitamin K 1 MG ONE (05:02)
[2018-11-02] MEDS ORDERED: FERREX 150 PO SCH (10:00)
[2018-11-02 17:35] LABS: Hematocrit 32.2 % (35-47); Hemoglobin 10.5 gm/dl (12.0-16.0); Mean Cell Volume 92.8 fl (78-100); Mean Corpuscular Hgb Concent. 32.6 g/dl (32-36); Mean Platelet Volume 10.5 fl (6-9.5); Platelet Count 184 K/mm3 (150-450); Red Blood Count 3.47 M/mm3 (4.1-5.4); Red Cell Distribution Width 20.8 % (11.5-14.0); White Blood Count 14.8 K/mm3 (4.0-10.5)
[2018-11-02 17:43] LABS: Mean Corpuscular Hemoglobin 30.2 pg (26-32)
[2018-11-02] MEDS: Colace 100 MG PO SCH (21:24)
[2018-11-03 03:51] LABS: Eosinophil 1 % (0.00-3.0); Lymphocytes 14 % (24-44); Monocyte 6 % (0.0-12.0); Neutrophils 79 % (36.0-66.0); Platelet Estimate NORMAL (NORMAL); Total Cells Counted 100
[2018-11-03] MEDS: Colace 100 MG PO SCH ×2 (08:21→21:07)
[2018-11-03] MEDS: MOTRIN 400 MG PO PRN ×2 (09:10→21:07)
--- NOTE | 2018-11-04 04:21 | PCM.DS ---
Discharge Summary Date of Admission: 11/01/18 15:19 Admitting Physician: RAGHAV WOOD Consults: Consults on Case 11/01/18 20:32 Notify Anesthesia Provider PRN Primary Care Provider: RAGHAV WOOD Allergies Allergies ibuprofen [From Advil] Allergy (Verified 11/03/18 08:15) Rash Penicillins Allergy (Verified 10/21/18 17:31) Anaphylactic Reaction promethazine [From Phenergan] Adverse Reaction (Verified 10/21/18 17:31) Muscle Aches Hospital Summary - Hospital Course Hospital Course: Pt came in as 23 yo at 39+ weeks in active labor. AROM was done and she progressed steadily without augmentation; delivered viable girl with first degree laceration x 2 (for full details see delivery note). Since then she has been taking occasional motrin for pain. Bleeding has been wnl. Tolerating po well. , which is going well. During she was quite anemic and required iron infusion. At admission her Hgb was 11.5 and 12h after delivery was 10.5. After delivery she had one experience of incontinence of urine; that has since resolved. - Vitals & Intake/Output Vital Signs: Vital Signs Temperature 98.2 F 11/03/18 20:00 Pulse Rate 55 L 11/03/18 20:00 Respiratory Rate 20 11/03/18 20:00 Blood Pressure 121/79 11/03/18 20:00 O2 Sat by Pulse Oximetry Intake & Output: Intake & Output 11/01/18 11/02/18 11/03/18 11/04/18 11:59 11:59 11:59 11:59 Intake Total 850 820 Balance 850 820 Weight 61.235 kg - Lab Result Diagrams: 11/02/18 17:33 Discharge Exam General Appearance: no apparent distress, alert Neurologic Exam: oriented x 3, cooperative Eye Exam: eyes nml inspection Ears, Nose, Throat Exam: moist mucous membranes Neck Exam: normal inspection Respiratory Exam: normal breath sounds, lungs clear, No crackles/rales, No rhonchi, No wheezing Cardiovascular Exam: regular rate/rhythm, normal heart sounds, No murmur Gastrointestinal/Abdomen Exam: soft, other (fundus firm under umbilicus) Extremity Exam: normal inspection, No pedal edema, No swelling Skin Exam: normal color, warm, dry, No rash Final Diagnosis/Problem List - Final Discharge Diagnosis/Problem (1) Spontaneous vaginal delivery Current Visit: Yes Status: Acute Assessment & Plan: PPD #2 - doing great. home today on motrin. . Code(s): O80 - ENCOUNTER FOR FULL-TERM UNCOMPLICATED DELIVERY - Discharge Disposition: Home, Self-Care Condition: Good Prescriptions: New Ibuprofen 600 mg PO TID PRN #35 tablet PRN Reason: Pain Continue Vits W-Ca,Fe,FA(<1Mg) [] 1 tab PO DAILY Ferrous Sulfate [Iron] 325 mg PO BID Follow up with: RAGHAV WOOD [Primary Care Provider] - 1 Week
[2018-11-04] MEDS: MOTRIN 400 MG PO PRN (05:26)
[2018-11-04 10:12] VITALS: BP 104/63; PULSE 76
== END 2018-11-04 06:50 | disposition home or self-care (01) | DRG 807 ==
LOC: OB 09:59 → OBSVTOIN 15:19 → MED SURG 11-03 10:45
PROVIDERS: ADMIT Family Medicine; ATTEND Family Medicine
PROC: 0HQ9XZZ Repair Perineum Skin, External Approach (ICD-10-PCS; principal; 2018-11-02)
PROC: 10E0XZZ Delivery of Products of Conception, External Approach (ICD-10-PCS; 2018-11-02)
PROC: 0UQMXZZ Repair Vulva, External Approach (ICD-10-PCS; 2018-11-02)
DX: O70.0 First degree perineal laceration during delivery (principal); Z37.0 Single live birth; Z3A.39 39 weeks gestation of pregnancy; R32 Unspecified urinary incontinence
CPT/HCPCS: 36415; 80307; 85025; 90707; 96372; G0378; J2590; J2795; A9270-GY

== ENCOUNTER 2021-07-20 10:33 | Emergency (ER) | payer OTHER ==
[2021-07-20 10:45] VITALS: O2SAT 98
--- NOTE | 2021-07-20 11:10 | ERPHSYRPT ---
- History of Present Illness Source: patient Exam Limitations: no limitations Patient Subjective Stated Complaint: PT states "I started to bleed a little last night and today it is quite a bit." Triage Nursing Assessment: Pt presented alert and oriented X 3, skin wpd PT am bulates with a slow gait, able to speak in clear full setnences Physician History: 25yo wf w +preg test in clinic(07/13/21) presents w vaginal spotting which has turned to bleeding x 3days w cramping. She denies N/V/D/fever. Pain 5/10 on scale. Timing/Duration: day(s) (3 days) Activites at Onset: rest Quality: cramping Onset Location: pelvic pain Pain Radiation: none Severity of Pain-Max: moderate Severity of Pain-Current: moderate Prior abdominal problems: other (+) Sexual intercourse history: other () Modifying Factors: Improves With: nothing Associated Symptoms: abdominal pain, , No fever, No chills, No diaphoresis, No nausea, No vomiting, No dysuria, No nocturia, No polyuria, No urinary frequency, No loss of bladder control, No lower back pain, No lumps, No mass, No swelling, No syncope, No vaginal discharge, No vaginal fluid leakage Allergies/Adverse Reactions: Penicillins Allergy (Verified 03/31/21 13:24) Anaphylactic Reaction promethazine [From Phenergan] Adverse Reaction (Verified 03/31/21 13:24) Muscle Aches Home Medications: Vits W-Ca,Fe,FA(<1Mg) [] 1 tab PO DAILY 04/06/18 [History] Hx Tetanus, Diphtheria Vaccination/Date Given: Yes Hx Influenza Vaccination/Date Given: No Hx Pneumococcal Vaccination/Date Given: No Travel Risk - International Travel Have you traveled outside of the country in past 3 weeks: No - Coronavirus Screening Are you exhibiting any of the following symptoms?: No Close contact with a COVID-19 positive Pt in past 14-21 Days: No - Vaccine Status Have you recieved a Covid-19 vaccination: Yes Pnp: Moderna - Vaccination Dates Date of 2cond Vaccination (if applicable): 2020 - Review of Systems Constitutional: No Symptoms Eyes: No Symptoms Ears, Nose, & Throat: No Symptoms Respiratory: No Symptoms Cardiac: No Symptoms Abdominal/Gastrointestinal: No Symptoms, Abdominal Pain Genitourinary Symptoms: No Symptoms, , Vaginal Bleeding Musculoskeletal: No Symptoms Skin: No Symptoms Neurological: No Symptoms Psychological: No Symptoms Endocrine: No Symptoms Hematologic/Lymphatic: No Symptoms Immunological/Allergic: No Symptoms - Past Medical History Pertinent Past Medical History: Yes Neurological History: Migraines ENT History: No Pertinent History Cardiac History: No Pertinent History Respiratory History: No Pertinent History Endocrine Medical History: No Pertinent History Musculoskeletal History: No Pertinent History GI Medical History: GERD, Gallbladder Disease History: No Pertinent History, Other Psycho-Social History: No Pertinent History Female Reproductive Disorders: Menstrual Problems Other Medical History: heavy periods has chronic uti - Past Surgical History Past Surgical History: Yes Neuro Surgical History: No Pertinent History Cardiac: No Pertinent History Respiratory: No Pertinent History Gastrointestinal: Cholecystectomy Genitourinary: No Pertinent History Musculoskeletal: No Pertinent History Female Surgical History: No Pertinent History Other Surgical History: EGD. - Social History Smoking Status: Never smoker Exposure to second hand smoke: No Drug Use: none Patient Lives Alone: No Significant Family History: no pertinent family hx - Female History Hx Last Menstrual Period: 06/14/2021 Hx Now: Yes - Nursing Vital Signs Nursing Vital Signs: Initial Vital Signs Temperature 97.8 F 07/20/21 10:40 Pulse Rate 102 H 07/20/21 10:40 Respiratory Rate 22 07/20/21 10:40 Blood Pressure 127/87 07/20/21 10:40 O2 Sat by Pulse Oximetry 98 07/20/21 10:40 Pain Scale Pain Intensity 4 Mildly tachy - Physical Exam General Appearance: no apparent distress, anxiety Eye Exam: PERRL/EOMI Ears, Nose, Throat Exam: normal ENT inspection Neck Exam: normal inspection Respiratory Exam: lungs clear, airway intact, No respiratory distress Cardiovascular Exam: tachycardia (Mild), capillary refill <2 sec, No murmur Gastrointestinal/Abdomen Exam: soft, normal bowel sounds, tenderness (Mild supra-pubic TTP) Back Exam: normal inspection, normal range of motion Extremity Exam: normal inspection, normal range of motion Neurologic Exam: alert, oriented x 3, cooperative, jar filler II-XII nml as tested, normal mood/affect, nml station & gait, sensation nml Skin Exam: normal color, warm, dry Lymphatic Exam: No adenopathy SpO2 Interpretation: normal SpO2: 98 O2 Delivery: Room Air - Course Nursing assessment & vital signs reviewed: Yes - Radiology Ultrasound Exam Other Ultrasound: discussed w/radiologist (No intrauterine or ectopic) Ordered Tests: Active Orders 24 hr Category Date Time Status OB <14 WKS 1ST GESTATION [US] Stat Exams 07/20/21 11:29 Completed CBC W DIFF Stat Lab 07/20/21 10:55 Completed HCG, Quantitative (Inhouse) Stat Lab 07/20/21 10:55 Completed Medication Summary Discontinued Medications Generic Name Dose Route Start Last Admin Trade Name Freq PRN Reason Stop Dose Admin Sodium Chloride 1,000 mls @ 999 mls/hr 07/20/21 11:16 07/20/21 12:35 Sodium Chloride 0.9% 1000 Ml IV 07/20/21 12:16 Infused .Q1H1M STA Infusion Sodium Chloride Confirm 07/20/21 11:29 Sodium Chloride 0.9% 1000 Ml Administered 07/20/21 11:30 Dose 1,000 mls @ ud .ROUTE .STK-MED ONE Lab/Rad Data: Laboratory Result Diagrams 07/20/21 10:55 Laboratory Results 07/20/21 07/20/21 07/20/21 Range/Units 10:55 10:55 10:55 WBC 4.7 (4.0-10.5) K/mm3 RBC 4.24 (4.1-5.4) M/mm3 Hgb 13.2 (12.0-16.0) gm/dl Hct 40.1 (35-47) % MCV 94.6 (78-100) fl MCH 31.1 (26-32) pg MCHC 32.9 (32-36) g/dl RDW 12.4 (11.5-14.0) % Plt Count 290 (150-450) K/mm3 MPV 10.7 (7.5-11.0) fl Gran % 49.4 (36.0-66.0) % Eos # (Auto) 0.03 (0-0.5) Absolute Lymphs (auto) 1.76 (1.0-4.6) Absolute Monos (auto) 0.59 (0.0-1.3) Lymphocytes % 37.3 (24.0-44.0) % Monocytes % 12.5 H (0.0-12.0) % Eosinophils % 0.6 (0.00-5.0) % Basophils % 0.2 (0.0-0.4) % Absolute Granulocytes 2.33 (1.4-6.9) Basophils # 0.01 (0-0.4) Beta HCG, Quant 109.52 mIU/ml Rh Factor POSITIVE - Progress Progress: improved Progress Note: 07/20/21 12:07 1L NS bolus 07/20/21 12:23 Pt has appointment to see Dr. Muniz in AM 07/20/21 19:03 Pt refused pain meds during entire stay Counseled pt/family regarding: lab results, diagnosis, need for follow-up, rad results - Departure Departure Disposition: Home Clinical Impression: Spontaneous Condition: Stable Critical Care Time: No Critical Care Time(excluding separately billable procedures): Critical 30-74 mins Referrals: RAGHAV NOLAN [Primary Care Provider] - Follow up/PCP as directed Instructions: Miscarriage (DC) Additional Instructions: Continue vitamins Motrin/tylenol for pain Keep your appointment with Dr. Muniz tomorrow You are Rh+ BHcg 109.52 Return to ER if your completely soak through 4 pads in 1 hour
[2021-07-20] MEDS ORDERED: Sodium Chloride 0.9% 1000 ML 1,000 ML IV STA (11:16)
[2021-07-20 11:21] LABS: Absolute Neutrophil Ct (ANC) 2.33 (1.4-6.9); Basophil (Absolute #) 0.01 (0-0.4); Eosinophil % 0.6 % (0.00-5.0); Eosinophil (Absolute #) 0.03 (0-0.5); Hematocrit 40.1 % (35-47); Hemoglobin 13.2 gm/dl (12.0-16.0); Lymphocyte (Absolute #) 1.76 (1.0-4.6); Lymphocytes % 37.3 % (24.0-44.0); Mean Cell Volume 94.6 fl (78-100); Mean Corpuscular Hemoglobin 31.1 pg (26-32); Mean Corpuscular Hgb Concent. 32.9 g/dl (32-36); Mean Platelet Volume 10.7 fl (7.5-11.0); Monocyte (Absolute #) 0.59 (0.0-1.3); Monocytes % 12.5 % (0.0-12.0); Neutrophil % 49.4 % (36.0-66.0); Platelet Count 290 K/mm3 (150-450); Red Blood Count 4.24 M/mm3 (4.1-5.4); Red Cell Distribution Width 12.4 % (11.5-14.0); White Blood Count 4.7 K/mm3 (4.0-10.5)
[2021-07-20] MEDS ORDERED: Sodium Chloride 0.9% 1000 ML 1,000 ML ONE (11:29)
--- NOTE | 2021-07-20 11:53 | XRAY ---
Indication: Left-sided pain. Bleeding. Two-dimensional transabdominal and transvaginal early OB ultrasound performed. Comparison: None for this . Uterus anteverted measuring 6.9 x 4.0 x 3.7 cm and homogeneous in echogenicity. No intrauterine gestational sac, pole or heart tones. Endometrial stripe measures 5.8 mm. No new major cavity mass or fluid collection. Right ovary measures 3.1 x 1.6 x 1.9 cm and the left measures 1.8 x 2.0 x 1.6 cm. Normal perfusion bilaterally. No suspicious adnexal mass or free fluid. Impression: Negative for intrauterine/ectopic . Remaining pelvic sonogram is also negative.
[2021-07-20 12:32] VITALS: BP 131/78; PULSE 86
== END 2021-07-20 12:41 | disposition home or self-care (01) ==
LOC: ED 10:33
DX: O03.9 Complete or unspecified spontaneous abortion without complication (principal)
CPT/HCPCS: 36000; 36415; 76801; 84702; 85025; 86901; 96360; 99284; 99291

== ENCOUNTER 2022-05-14 11:53 | Emergency (ER) | payer OTHER ==
--- NOTE | 2022-05-14 11:58 | ERPHSYRPT ---
- History of Present Illness Time Seen by Provider: 05/14/22 11:58 Source: patient Exam Limitations: no limitations Physician History: This is a 26-year-old white female patient of Dr. Hunter Lomas who presents with 2-day history of multiple episodes of vomiting, headache and weakness. She states that she is unable to hold much down orally. She has had no vaginal bleeding and denies abdominal pain or cramping. She did have negative chlamydia and gonorrhea testing done on 05/12/2022. She has no chest pain and she has no shortness of breath. Patient has a history of migraine headaches. She has no neck pain. She has no visual changes. She denies urinary frequency. She denies dysuria. Timing/Duration: day(s) (2) Severity: mild Modifying Factors: Improves With: nothing Associated Symptoms: nausea, vomiting, headaches Allergies/Adverse Reactions: Penicillins Allergy (Verified 05/14/22 12:10) Anaphylactic Reaction promethazine [From Phenergan] Adverse Reaction (Verified 05/14/22 12:10) Muscle Aches Home Medications: Citalopram Hydrobromide 20 mg* [ceLEXa 20 MG] 40 mg PO DAILY 05/14/22 [H istory] Pnv No.95/Ferrous Fum/Folic AC [ Vitamins Tablet] 1 tab PO DAILY 05/14/22 [History] Hx Tetanus, Diphtheria Vaccination/Date Given: Yes Hx Influenza Vaccination/Date Given: No Hx Pneumococcal Vaccination/Date Given: No Travel Risk - International Travel Have you traveled outside of the country in past 3 weeks: No - Coronavirus Screening Are you exhibiting any of the following symptoms?: Yes Symptoms: Vomiting/Diarrhea, Headaches/Body Aches/Fatigue - Vaccine Status Have you recieved a Covid-19 vaccination: 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 - Vaccination Dates Date of 2cond Vaccination (if applicable): 2020 - Review of Systems Constitutional: Weakness Eyes: No Symptoms Ears, Nose, & Throat: No Symptoms Respiratory: No Symptoms Cardiac: No Symptoms Abdominal/Gastrointestinal: Nausea, Vomiting, Appetite Changes Genitourinary Symptoms: No Symptoms Musculoskeletal: No Symptoms Skin: No Symptoms Neurological: Headache Psychological: No Symptoms Endocrine: No Symptoms Hematologic/Lymphatic: No Symptoms Immunological/Allergic: No Symptoms All Other Systems: Reviewed and Negative - Past Medical History Pertinent Past Medical History: Yes Neurological History: Migraines ENT History: No Pertinent History Cardiac History: No Pertinent History Respiratory History: No Pertinent History Endocrine Medical History: No Pertinent History Musculoskeletal History: No Pertinent History GI Medical History: GERD, Gallbladder Disease History: No Pertinent History, Other Psycho-Social History: No Pertinent History Female Reproductive Disorders: Menstrual Problems Other Medical History: heavy periods has chronic uti - Past Surgical History Past Surgical History: Yes Neuro Surgical History: No Pertinent History Cardiac: No Pertinent History Respiratory: No Pertinent History Gastrointestinal: Cholecystectomy Genitourinary: No Pertinent History Musculoskeletal: No Pertinent History Female Surgical History: No Pertinent History Other Surgical History: EGD, wisdom teeth - Social History Smoking Status: Never smoker Exposure to second hand smoke: No Drug Use: none Patient Lives Alone: No Significant Family History: no pertinent family hx - Nursing Vital Signs Nursing Vital Signs: Initial Vital Signs Temperature 97.5 F 05/14/22 12:13 Pulse Rate 77 05/14/22 12:13 Respiratory Rate 18 05/14/22 12:13 Blood Pressure 98/78 05/14/22 12:13 O2 Sat by Pulse Oximetry 100 05/14/22 12:13 Pain Scale Pain Intensity 6 - Physical Exam General Appearance: no apparent distress, alert, anxiety, thin Eye Exam: PERRL/EOMI, eyes nml inspection Ears, Nose, Throat Exam: normal ENT inspection, moist mucous membranes Neck Exam: normal inspection, non-tender, supple, full range of motion Respiratory Exam: normal breath sounds, lungs clear, airway intact, No chest tenderness, No respiratory distress Cardiovascular Exam: regular rate/rhythm, normal heart sounds, normal peripheral pulses Gastrointestinal/Abdomen Exam: soft, normal bowel sounds, No tenderness Pelvic Exam: not done Rectal Exam: not done Back Exam: normal inspection, normal range of motion, No CVA tenderness, No vertebral tenderness Extremity Exam: normal inspection, normal range of motion, pelvis stable Neurologic Exam: alert, oriented x 3, cooperative, reach lift truck driver II-XII nml as tested, normal mood/affect, nml cerebellar function, nml station & gait, sensation nml Skin Exam: normal color, warm, dry Lymphatic Exam: No adenopathy SpO2 Interpretation: normal O2 Delivery: Room Air - Course Nursing assessment & vital signs reviewed: Yes Ordered Tests: Active Orders 24 hr Category Date Time Status IV Insertion STAT Care 05/14/22 12:30 Active CBC W DIFF Stat Lab 05/14/22 12:30 Completed CMP Stat Lab 05/14/22 12:30 Completed CULTURE,URINE Stat Lab 05/14/22 12:35 Received Victoria Screen Stat Lab 05/14/22 12:30 Completed UA W/RFX CULTURE Stat Lab 05/14/22 12:35 Completed Medication Summary Discontinued Medications Generic Name Dose Route Start Last Admin Trade Name Frankie PRN Reason Stop Dose Admin Sodium Chloride 1,000 mls @ 999 mls/hr 05/14/22 12:30 05/14/22 12:39 Sodium Chloride 0.9% 1000 Ml IV 05/14/22 13:30 999 mls/hr .Q1H1M STA Administration Sodium Chloride Confirm 05/14/22 12:37 Sodium Chloride 0.9% 1000 Ml Administered 05/14/22 12:38 Dose 1,000 mls @ ud .ROUTE .STK-MED ONE Ceftriaxone Sodium/Dextrose 1 g in 50 mls @ 100 mls/hr 05/14/22 13:09 05/14/22 13:15 Rocephin 1 Gm-D5w 50 Ml Bag IV 05/14/22 13:38 100 ml/hr STAT STA 100 mls/hr Administration Ceftriaxone Sodium/Dextrose Confirm 05/14/22 13:12 Rocephin 1 Gm-D5w 50 Ml Bag Administered 05/14/22 13:13 Dose 1 g in 50 mls @ ud IV .STK-MED ONE Ondansetron HCl 4 mg 05/14/22 12:30 05/14/22 12:39 Ondansetron Hcl 4 Mg/2 Ml Vial IV 05/14/22 12:31 4 mg STAT ONE Administration Ondansetron HCl Confirm 05/14/22 12:37 Ondansetron Hcl 4 Mg/2 Ml Vial Administered 05/14/22 12:38 Dose 4 mg .ROUTE .STK-MED ONE Potassium Chloride 20 meq 05/14/22 13:48 Potassium Chloride Tab 10 Meq Tab PO 05/14/22 13:49 STAT ONE Lab/Rad Data: Laboratory Result Diagrams 05/14/22 12:30 05/14/22 12:30 Laboratory Results 05/14/22 05/14/22 05/14/22 Range/Units 12:42 12:35 12:30 WBC (4.0-10.5) x10^3/uL RBC (4.1-5.4) x10^6/uL Hgb (12.0-16.0) g/dL Hct (35-47) % MCV (78-100) fL MCH (26-32) pg MCHC (32-36) g/dL RDW (11.5-14.0) % Plt Count (150-450) x10^3/uL MPV (7.5-11.0) fL Gran % (36.0-66.0) % Immature Gran % (Auto) (0.00-0.4) % Nucleat RBC Rel Count (0.00-0.1) % Eos # (Auto) (0-0.5) x10^3/uL Immature Gran # (Auto) (0.00-0.03) x10^3u/L Absolute Lymphs (auto) (1.0-4.6) x10^3/uL Absolute Monos (auto) (0.0-1.3) x10^3/uL Absolute Nucleated RBC (0.00-0.01) x10^3u/L Lymphocytes % (24.0-44.0) % Monocytes % (0.0-12.0) % Eosinophils % (0.00-5.0) % Basophils % (0.0-0.4) % Absolute Granulocytes (1.4-6.9) x10^3/uL Basophils # (0-0.4) x10^3/uL Sodium (137-145) mmol/L Potassium (3.5-5.1) mmol/L Chloride (98-107) mmol/L Carbon Dioxide (22-30) mmol/L Anion Gap (5-15) MEQ/L BUN (7-17) mg/dL Creatinine (0.52-1.04) mg/dL Estimated GFR ML/MIN Glucose (74-106) mg/dL Calcium (8.4-10.2) mg/dL Total Bilirubin (0.2-1.3) mg/dL AST (14-36) U/L ALT (0-35) U/L Alkaline Phosphatase (38-126) U/L Serum Total Protein (6.3-8.2) g/dL Albumin (3.5-5.0) g/dL Urinalys Dipstick Clnc MAIN LAB Urine Color YELLOW (YELLOW) Urine Appearance CLOUDY A (CLEAR) Urine pH 5.5 (5-6) Ur Specific Sterling >=1.030 A (1.005-1.025) POC Urine Protein Conf 30 A (Negative) Urine Ketones NEGATIVE (NEGATIVE) Urine Nitrite NEGATIVE (NEGATIVE) Urine Bilirubin NEGATIVE (NEGATIVE) Urine Urobilinogen 0.2 (0-1) mg/dL Urine Leukocytes MODERATE A (NEGATIVE) Urine WBC (Auto) >100 A (0-5) /HPF Urine RBC (Auto) 11-15 A (0-2) /HPF U Epithel Cells (Auto) MANY (FEW) /HPF Urine Bacteria (Auto) FEW A (NEGATIVE) /HPF Urine RBC MODERATE A (0-5) Brent/ul Urine Mucus (Auto) MANY A (NEGATIVE) /HPF Ur Culture Indicated? YES Urine Glucose NEGATIVE (NEGATIVE) mg/dL Monoscreen WEAKLY POSITIVE (Negative) Influenza Type A Ag NEGATIVE (NEGATIVE) Influenza Type B Ag NEGATIVE (NEGATIVE) RSV (PCR) NEGATIVE (Negative) SARS-CoV-2 (PCR) NEGATIVE (NEGATIVE) Group A Strep Antibody NOT DETECTED (NEGATIVE) 05/14/22 05/14/22 Range/Units 12:30 12:30 WBC 8.4 (4.0-10.5) x10^3/uL RBC 3.82 L (4.1-5.4) x10^6/uL Hgb 11.5 L (12.0-16.0) g/dL Hct 35.8 (35-47) % MCV 93.7 (78-100) fL MCH 30.1 (26-32) pg MCHC 32.1 (32-36) g/dL RDW 13.0 (11.5-14.0) % Plt Count 327 (150-450) x10^3/uL MPV 10.3 (7.5-11.0) fL Gran % 65.4 (36.0-66.0) % Immature Gran % (Auto) 0.4 (0.00-0.4) % Nucleat RBC Rel Count 0.0 (0.00-0.1) % Eos # (Auto) 0.01 (0-0.5) x10^3/uL Immature Gran # (Auto) 0.03 (0.00-0.03) x10^3u/L Absolute Lymphs (auto) 2.25 (1.0-4.6) x10^3/uL Absolute Monos (auto) 0.57 (0.0-1.3) x10^3/uL Absolute Nucleated RBC 0.00 (0.00-0.01) x10^3u/L Lymphocytes % 26.9 (24.0-44.0) % Monocytes % 6.8 (0.0-12.0) % Eosinophils % 0.1 (0.00-5.0) % Basophils % 0.4 (0.0-0.4) % Absolute Granulocytes 5.46 (1.4-6.9) x10^3/uL Basophils # 0.03 (0-0.4) x10^3/uL Sodium 134 L (137-145) mmol/L Potassium 3.2 L (3.5-5.1) mmol/L Chloride 106 (98-107) mmol/L Carbon Dioxide 23 (22-30) mmol/L Anion Gap 8.5 (5-15) MEQ/L BUN 7 (7-17) mg/dL Creatinine 0.51 L (0.52-1.04) mg/dL Estimated GFR > 60.0 ML/MIN Glucose 86 (74-106) mg/dL Calcium 8.4 (8.4-10.2) mg/dL Total Bilirubin 0.50 (0.2-1.3) mg/dL AST 24 (14-36) U/L ALT 20 (0-35) U/L Alkaline Phosphatase 40 (38-126) U/L Serum Total Protein 7.2 (6.3-8.2) g/dL Albumin 3.9 (3.5-5.0) g/dL Urinalys Dipstick Clnc Urine Color (YELLOW) Urine Appearance (CLEAR) Urine pH (5-6) Ur Specific Sterling (1.005-1.025) POC Urine Protein Conf (Negative) Urine Ketones (NEGATIVE) Urine Nitrite (NEGATIVE) Urine Bilirubin (NEGATIVE) Urine Urobilinogen (0-1) mg/dL Urine Leukocytes (NEGATIVE) Urine WBC (Auto) (0-5) /HPF Urine RBC (Auto) (0-2) /HPF U Epithel Cells (Auto) (FEW) /HPF Urine Bacteria (Auto) (NEGATIVE) /HPF Urine RBC (0-5) Brent/ul Urine Mucus (Auto) (NEGATIVE) /HPF Ur Culture Indicated? Urine Glucose (NEGATIVE) mg/dL Monoscreen (Negative) Influenza Type A Ag (NEGATIVE) Influenza Type B Ag (NEGATIVE) RSV (PCR) (Negative) SARS-CoV-2 (PCR) (NEGATIVE) Group A Strep Antibody (NEGATIVE) - Progress Progress: improved, re-examined Progress Note: 05/14/22 13:07 Patient states that she has had Rocephin antibiotic in the past without any problems or issues. Discussed with DrRuddy: Karthik (I reviewed the work-up results with Dr. Muniz prior to patient being discharged to home.) Counseled pt/family regarding: lab results, diagnosis, need for follow-up - Departure Departure Disposition: Home Clinical Impression: UTI in , Mononucleosis, Hypokalemia Condition: Stable Critical Care Time: No Referrals: RAGHAV NOLAN [Primary Care Provider] - Follow up/PCP as directed Additional Instructions: Drink plenty of clear liquids before advancing diet. Take your antibiotics as prescribed. Follow-up with your primary care physician and capacity management specialist for further evaluation management Prescriptions: Ondansetron ODT 4 MG [Zofran Odt 4 mg] 4 mg PO Q6H PRN PRN #10 tablet PRN Reason: Vomiting Cephalexin Mh 500 mg [Keflex 500 mg] 500 mg PO TID #21 cap
[2022-05-14] MEDS ORDERED: Zofran 4 MG/2 ML VIAL IV ONE (12:30)
[2022-05-14] MEDS ORDERED: Sodium Chloride 0.9% 1000 ML 1,000 ML IV STA (12:30)
[2022-05-14 12:35] LABS: Absolute Neutrophil Ct (ANC) 5.46 x10^3/uL (1.4-6.9); Basophil (Absolute #) 0.03 x10^3/uL (0-0.4); Eosinophil % 0.1 % (0.00-5.0); Eosinophil (Absolute #) 0.01 x10^3/uL (0-0.5); Hematocrit 35.8 % (35-47); Hemoglobin 11.5 g/dL (12.0-16.0); Lymphocyte (Absolute #) 2.25 x10^3/uL (1.0-4.6); Lymphocytes % 26.9 % (24.0-44.0); Mean Cell Volume 93.7 fL (78-100); Mean Corpuscular Hemoglobin 30.1 pg (26-32); Mean Corpuscular Hgb Concent. 32.1 g/dL (32-36); Mean Platelet Volume 10.3 fL (7.5-11.0); Monocyte (Absolute #) 0.57 x10^3/uL (0.0-1.3); Monocytes % 6.8 % (0.0-12.0); Neutrophil % 65.4 % (36.0-66.0); Platelet Count 327 x10^3/uL (150-450); Red Blood Count 3.82 x10^6/uL (4.1-5.4); White Blood Count 8.4 x10^3/uL (4.0-10.5)
[2022-05-14] MEDS ORDERED: Sodium Chloride 0.9% 1000 ML 1,000 ML ONE (12:37)
[2022-05-14] MEDS ORDERED: Zofran 4 MG/2 ML VIAL ONE (12:37)
[2022-05-14 12:41] LABS: Bacteria FEW /HPF (NEGATIVE); Epithelial Cells MANY /HPF (FEW); Mucus MANY /HPF (NEGATIVE); WBC >100 /HPF (0-5)
[2022-05-14 12:47] LABS: Appearance CLOUDY (CLEAR); Bilirubin NEGATIVE (NEGATIVE); Glucose NEGATIVE (NEGATIVE); Ketones NEGATIVE (NEGATIVE); Specific Gravity >=1.030 (1.005-1.025)
[2022-05-14 12:48] LABS: Dipstick done @ ? MAIN LAB; Nitrite NEGATIVE (NEGATIVE); Ph 5.5 (5-6); Protein,Urine Dip 30 (Negative); RBC MODERATE Ery/ul (0-5); Urobilinogen 0.2 mg/dL (0-1)
[2022-05-14 12:49] LABS: Urine Cultured Indicated? YES
[2022-05-14 12:50] LABS: ALBUMIN 3.9 g/dL (3.5-5.0); ALKALINE PHOSPHATASE 40 U/L (38-126); ANION GAP 8.5 MEQ/L (5-15); BLOOD UREA NITROGEN 7 mg/dL (7-17); CHLORIDE 106 mmol/L (98-107); Calcium 8.4 mg/dL (8.4-10.2); Carbon Dioxide 23 mmol/L (22-30); Creatinine 1 0.51 mg/dL (0.52-1.04); EST GLOMERULAR FILTRATION RATE > 60.0 ML/MIN; Glucose 86 mg/dL (74-106); Potassium 3.2 mmol/L (3.5-5.1); SGOT/AST 24 U/L (14-36); SGPT/ALT 20 U/L (0-35); SODIUM 134 mmol/L (137-145); Total Protein 7.2 g/dL (6.3-8.2)
[2022-05-14 13:05] LABS: Group A Strep NOT DETECTED (NEGATIVE)
[2022-05-14 13:09] VITALS: O2SAT 98
[2022-05-14] MEDS ORDERED: ROCEPHIN 1 Gm-D5w 50 ml Bag** 1 G/50 ML IVPB IV STA (13:09)
[2022-05-14] MEDS ORDERED: ROCEPHIN 1 Gm-D5w 50 ml Bag** 1 G/50 ML IVPB IV ONE (13:12)
[2022-05-14 13:19] LABS: INFLUENZA A NEGATIVE (NEGATIVE); INFLUENZA B NEGATIVE (NEGATIVE); RESPIRATORY SYNCTIAL VIRUS NEGATIVE (Negative); SARS-CoV-2 Xpert Express NEGATIVE (NEGATIVE)
[2022-05-14] MEDS ORDERED: Klor Con PO ONE ×2 (13:48→13:53)
[2022-05-14 14:00] VITALS: BP 99/68; PULSE 76
== END 2022-05-14 14:06 | disposition home or self-care (01) ==
LOC: ED 11:53
DX: O23.40 Unspecified infection of urinary tract in pregnancy, unspecified trimester (principal); N39.0 Urinary tract infection, site not specified; O98.519 Other viral diseases complicating pregnancy, unspecified trimester; Z3A.00 Weeks of gestation of pregnancy not specified; E87.6 Hypokalemia; R11.2 Nausea with vomiting, unspecified; R51.9 Headache, unspecified; R53.1 Weakness; Z79.899 Other long term (current) drug therapy
CPT/HCPCS: 0241U; 36000; 36415; 80053; 81015; 85025; 86308; 87077; 87086; 87186; 87651; 96374; 99284; 96360; 96365; J0696; J2405; A9270-GY

== ENCOUNTER 2022-08-12 11:36 | Observation (INO) | payer OTHER ==
[2022-08-12 12:06] VITALS: BP 101/64; PULSE 114
[2022-08-12 12:57] LABS: Absolute Neutrophil Ct (ANC) 6.87 x10^3/uL (1.4-6.9); BASOPHIL % 0.2 % (0.0-0.4); Basophil (Absolute #) 0.02 x10^3/uL (0-0.4); Eosinophil % 0.2 % (0.00-5.0); Eosinophil (Absolute #) 0.02 x10^3/uL (0-0.5); Hematocrit 27.6 % (35-47); Hemoglobin 8.9 g/dL (12.0-16.0); IMMATURE GRAN # 0.06 x10^3u/L (0.00-0.03); IMMATURE GRAN % 0.6 % (0.00-0.4); Lymphocyte (Absolute #) 1.99 x10^3/uL (1.0-4.6); Lymphocytes % 21.1 % (24.0-44.0); Mean Cell Volume 91.7 fL (78-100); Mean Corpuscular Hemoglobin 29.6 pg (26-32); Mean Corpuscular Hgb Concent. 32.2 g/dL (32-36); Mean Platelet Volume 10.2 fL (7.5-11.0); Monocyte (Absolute #) 0.47 x10^3/uL (0.0-1.3); Neutrophil % 72.9 % (36.0-66.0); Platelet Count 278 x10^3/uL (150-450); Red Blood Count 3.01 x10^6/uL (4.1-5.4); Red Cell Distribution Width 13.4 % (11.5-14.0); White Blood Count 9.4 x10^3/uL (4.0-10.5)
[2022-08-12 13:10] LABS: ALBUMIN 3.3 g/dL (3.5-5.0); ALKALINE PHOSPHATASE 49 U/L (38-126); ANION GAP 10.8 MEQ/L (5-15); BLOOD UREA NITROGEN 8 mg/dL (7-17); CHLORIDE 105 mmol/L (98-107); Calcium 8.1 mg/dL (8.4-10.2); Carbon Dioxide 24 mmol/L (22-30); Creatinine 1 0.49 mg/dL (0.52-1.04); EST GLOMERULAR FILTRATION RATE > 60.0 ML/MIN; Glucose 79 mg/dL (74-106); Potassium 3.5 mmol/L (3.5-5.1); SGOT/AST 17 U/L (14-36); SGPT/ALT 11 U/L (0-35); SODIUM 135 mmol/L (137-145); Total Protein 6.4 g/dL (6.3-8.2)
[2022-08-12 14:20] LABS: Appearance Cloudy (Clear); Bacteria Many /HPF (None Seen); Bilirubin Negative (Negative); Blood Negative (Negative); Epithelial Cells Many /HPF (None Seen); Glucose, Urine Negative (Negative); Ketones Trace (Negative); Leukocyte Esterase Moderate (Negative); Nitrite Negative (Negative); Protein,Urine Dip Trace (Negative); RBC 0-2 /HPF (0-5); Urobilinogen 0.2 mg/dL (0.2); WBC 51-100 /HPF (0-5)
[2022-08-12 14:21] LABS: ADD URINE CULTURE? YES (NO)
== END 2022-08-12 14:05 | disposition home or self-care (01) ==
LOC: EDSTATUS 11:46 → OB 11:47
PROVIDERS: ADMIT Obstetrics & Gynecology; ATTEND Obstetrics & Gynecology
DX: Z34.82 Encounter for supervision of other normal pregnancy, second trimester (principal); Z3A.20 20 weeks gestation of pregnancy; D50.9 Iron deficiency anemia, unspecified
CPT/HCPCS: 36415; 80053; 81001; 85025; 87086; G0378

== ENCOUNTER 2022-08-13 10:04 | Emergency (ER) | payer OTHER ==
[~2022-08-13 10:04] MED LIST: Venofer 100 MG/5 ML*** 200 MG in Sodium Chloride 0.9% 100 ML IV SCH
[2022-08-13 10:25] VITALS: O2SAT 100
[2022-08-13] MEDS ORDERED: Sodium Chloride 0.9% 1000 ML 1,000 ML IV STA ×2 (11:59→14:12)
[2022-08-13 12:05] LABS: BASOPHIL % 0.3 % (0.0-0.4); Basophil (Absolute #) 0.03 x10^3/uL (0-0.4); Eosinophil % 0.4 % (0.00-5.0); Eosinophil (Absolute #) 0.04 x10^3/uL (0-0.5); Hematocrit 31.5 % (35-47); Hemoglobin 9.9 g/dL (12.0-16.0); IMMATURE GRAN # 0.07 x10^3u/L (0.00-0.03); IMMATURE GRAN % 0.7 % (0.00-0.4); Lymphocyte (Absolute #) 2.34 x10^3/uL (1.0-4.6); Lymphocytes % 24.3 % (24.0-44.0); Mean Cell Volume 92.6 fL (78-100); Mean Corpuscular Hemoglobin 29.1 pg (26-32); Mean Corpuscular Hgb Concent. 31.4 g/dL (32-36); Mean Platelet Volume 10.8 fL (7.5-11.0); Monocyte (Absolute #) 0.36 x10^3/uL (0.0-1.3); Monocytes % 3.7 % (0.0-12.0); Neutrophil % 70.6 % (36.0-66.0); Platelet Count 320 x10^3/uL (150-450); Red Cell Distribution Width 13.5 % (11.5-14.0); White Blood Count 9.6 x10^3/uL (4.0-10.5)
[2022-08-13] MEDS ORDERED: Sodium Chloride 0.9% 1000 ML 1,000 ML ONE ×2 (12:06→14:42)
[2022-08-13 12:10] LABS: ANION GAP 10.2 MEQ/L (5-15); BLOOD UREA NITROGEN 7 mg/dL (7-17); CHLORIDE 105 mmol/L (98-107); Calcium 8.5 mg/dL (8.4-10.2); Carbon Dioxide 24 mmol/L (22-30); EST GLOMERULAR FILTRATION RATE > 60.0 ML/MIN; Glucose 79 mg/dL (74-106); Potassium 3.5 mmol/L (3.5-5.1); SODIUM 135 mmol/L (137-145)
--- NOTE | 2022-08-13 13:06 | ERPHSYRPT ---
- History of Present Illness Source: patient Exam Limitations: no limitations Patient Subjective Stated Complaint: 21 weeks pregnanat, feeling very weak, h/o anemia, hgb yesterday 7. here today to get iron infusion but very weak so came to ER. Triage Nursing Assessment: AAox3, color pale, C/o weakness. Here today to get iron infusion in outpatient however sent here d/t no stable enough to get infusion. Hgb 7 yesterday states patient. States 21 weeks . States anemia is chronic. Denies pain. Sob off and on. No chest pain, No N/V. C/o feeling dizzy and lightheaded today also. Timing/Duration: today Severity: mild Associated Symptoms: No nausea, No vomiting, No abdominal pain, No shortness of breath, No chest pain, No headaches, No syncope Hx Tetanus, Diphtheria Vaccination/Date Given: No Hx Influenza Vaccination/Date Given: No Hx Pneumococcal Vaccination/Date Given: No Immunizations Up to Date: Yes <DIONE CASTRO - Last Filed: 08/13/22 13:30> <ANNE-MARIE GTZ - Last Filed: 08/13/22 14:58> - History of Present Illness Time Seen by Provider: 08/13/22 11:21 Physician History: . This is a 26-year-old patient presenting to the ED for evaluation of weakness she is a G3, P2 at 21 weeks of Reports that her hemoglobin was 7 yesterday and she was advised to get a blood transfusion, dates that her heart rate was elevated at the transfusion center and hence she was advised to come to the ED for further evaluation. -Reports that she can feel her heart racing, denies any chest pain. -Has history of repeated blood transfusions in the prior . -That yesterday she passed out at [facility] (DIONE CASTRO) Allergies/Adverse Reactions: Penicillins Allergy (Verified 05/14/22 12:10) Anaphylactic Reaction promethazine [From Phenergan] Adverse Reaction (Verified 05/14/22 12:10) Muscle Aches Home Medications: Pnv No.95/Ferrous Fum/Folic AC [ Vitamins Tablet] 1 tab PO DAILY 05/14/22 [History] Travel Risk - International Travel Have you traveled outside of the country in past 3 weeks: No - Coronavirus Screening Are you exhibiting any of the following symptoms?: No Close contact with a COVID-19 positive Pt in past 14-21 Days: No - Vaccine Status Have you recieved a Covid-19 vaccination: Yes Bed Bug Exterminator: Moderna - Vaccination Dates Date of 2cond Vaccination (if applicable): 2020 <DIONE CASTRO - Last Filed: 08/13/22 13:30> - Review of Systems Constitutional: No Symptoms Eyes: No Symptoms Ears, Nose, & Throat: No Symptoms Respiratory: No Symptoms Cardiac: No Symptoms Abdominal/Gastrointestinal: No Symptoms Genitourinary Symptoms: No Symptoms Musculoskeletal: No Symptoms Skin: No Symptoms Neurological: No Symptoms Psychological: No Symptoms All Other Systems: Reviewed and Negative <DIONE CASTRO - Last Filed: 08/13/22 13:30> - Past Medical History Pertinent Past Medical History: Yes Neurological History: Migraines ENT History: No Pertinent History Cardiac History: No Pertinent History Respiratory History: No Pertinent History Endocrine Medical History: No Pertinent History Musculoskeletal History: No Pertinent History GI Medical History: GERD, Gallbladder Disease History: Other Psycho-Social History: No Pertinent History Female Reproductive Disorders: Menstrual Problems Other Medical History: heavy periods has chronic uti - Past Surgical History Past Surgical History: Yes Neuro Surgical History: No Pertinent History Cardiac: No Pertinent History Respiratory: No Pertinent History Gastrointestinal: Cholecystectomy Genitourinary: No Pertinent History Musculoskeletal: No Pertinent History Female Surgical History: No Pertinent History Other Surgical History: EGD, wisdom teeth - Social History Smoking Status: Never smoker Exposure to second hand smoke: No Drug Use: none Patient Lives Alone: No Significant Family History: no pertinent family hx - Female History Hx Now: Yes Gestational Age: 21 weeks <DIONE CASTRO - Last Filed: 08/13/22 13:30> - Physical Exam General Appearance: no apparent distress, No mild distress Eye Exam: PERRL/EOMI, eyes nml inspection, pale conjunctivae Ears, Nose, Throat Exam: normal ENT inspection, TMs normal, pharynx normal, dry mucous membranes Neck Exam: normal inspection, non-tender, supple, full range of motion Respiratory Exam: normal breath sounds, lungs clear, No chest tenderness Cardiovascular Exam: regular rate/rhythm, normal heart sounds, normal peripheral pulses Gastrointestinal/Abdomen Exam: soft, normal bowel sounds, No tenderness, No distention Pelvic Exam: not done Rectal Exam: deferred Back Exam: normal inspection, normal range of motion, No CVA tenderness Extremity Exam: normal inspection, normal range of motion Neurologic Exam: alert, oriented x 3, cooperative Skin Exam: normal color, warm Lymphatic Exam: No adenopathy SpO2: 100 <DIONE CASTRO - Last Filed: 08/13/22 13:30> - Nursing Vital Signs Nursing Vital Signs: Initial Vital Signs Temperature 97.4 F 08/13/22 10:14 Pulse Rate 118 H 08/13/22 10:14 Respiratory Rate 14 08/13/22 10:14 Blood Pressure 103/64 08/13/22 10:14 O2 Sat by Pulse Oximetry 100 08/13/22 10:14 Pain Scale Pain Intensity 0 Ordered Tests: Active Orders 24 hr Category Date Time Status BMP Stat Lab 08/13/22 11:10 Completed CBC W DIFF Stat Lab 08/13/22 11:10 Completed TSH [TSH, 3RD Generation] Stat Lab 08/13/22 12:14 Completed Medication Summary Generic Name Dose Route Start Last Admin Trade Name Freq PRN Reason Stop Dose Admin Iron Sucrose 200 mg/ Sodium 110 mls @ 200 mls/hr 08/13/22 10:00 Chloride IV 08/23/22 10:32 MoWeFr@1000 TOM Sodium Chloride 1,000 mls @ 999 mls/hr 08/13/22 14:12 08/13/22 14:45 Sodium Chloride 0.9% 1000 Ml IV 08/13/22 15:12 999 mls/hr .Q1H1M STA Administration Discontinued Medications Generic Name Dose Route Start Last Admin Trade Name Freq PRN Reason Stop Dose Admin Sodium Chloride 1,000 mls @ 999 mls/hr 08/13/22 11:59 08/13/22 13:13 Sodium Chloride 0.9% 1000 Ml IV 08/13/22 12:59 Infused .Q1H1M STA Infusion Sodium Chloride Confirm 08/13/22 12:06 Sodium Chloride 0.9% 1000 Ml Administered 08/13/22 12:07 Dose 1,000 mls @ ud .ROUTE .STK-MED ONE Sodium Chloride Confirm 08/13/22 14:42 Sodium Chloride 0.9% 1000 Ml Administered 08/13/22 14:43 Dose 1,000 mls @ ud .ROUTE .STK-MED ONE Lab/Rad Data: Laboratory Result Diagrams 08/13/22 11:10 03/17/23 11:10 Laboratory Results 08/13/22 08/13/22 08/13/22 Range/Units 12:14 11:10 11:10 WBC 9.6 (4.0-10.5) x10^3/uL RBC 3.40 L (4.1-5.4) x10^6/uL Hgb 9.9 L (12.0-16.0) g/dL Hct 31.5 L (35-47) % MCV 92.6 (78-100) fL MCH 29.1 (26-32) pg MCHC 31.4 L (32-36) g/dL RDW 13.5 (11.5-14.0) % Plt Count 320 (150-450) x10^3/uL MPV 10.8 (7.5-11.0) fL Gran % 70.6 H (36.0-66.0) % Immature Gran % (Auto) 0.7 H (0.00-0.4) % Nucleat RBC Rel Count 0.0 (0.00-0.1) % Eos # (Auto) 0.04 (0-0.5) x10^3/uL Immature Gran # (Auto) 0.07 H (0.00-0.03) x10^3u/L Absolute Lymphs (auto) 2.34 (1.0-4.6) x10^3/uL Absolute Monos (auto) 0.36 (0.0-1.3) x10^3/uL Absolute Nucleated RBC 0.00 (0.00-0.01) x10^3u/L Lymphocytes % 24.3 (24.0-44.0) % Monocytes % 3.7 (0.0-12.0) % Eosinophils % 0.4 (0.00-5.0) % Basophils % 0.3 (0.0-0.4) % Absolute Granulocytes 6.80 (1.4-6.9) x10^3/uL Basophils # 0.03 (0-0.4) x10^3/uL Sodium 135 L (137-145) mmol/L Potassium 3.5 (3.5-5.1) mmol/L Chloride 105 (98-107) mmol/L Carbon Dioxide 24 (22-30) mmol/L Anion Gap 10.2 (5-15) MEQ/L BUN 7 (7-17) mg/dL Creatinine 0.50 L (0.52-1.04) mg/dL Estimated GFR > 60.0 ML/MIN Glucose 79 (74-106) mg/dL Calcium 8.5 (8.4-10.2) mg/dL TSH 3rd Generation 1.370 (0.47-4.68) mIU/L <DIONE CASTRO - Last Filed: 08/13/22 13:30> - Progress Progress: improved Counseled pt/family regarding: lab results, diagnosis <ANNE-MARIE GTZ - Last Filed: 08/13/22 14:58> - Progress Progress Note: 08/13/22 13:05 . On arrival patient was found to be mildly hypotensive with a pressure of 97/66 reports that the patient's pressure is normally 90-100 systolic. Is tachycardic with a pulse rate of 103 An IV line was established and patient was given IV fluid bolus pending lab. We will need to discuss with OB and will need transfusion prior to being dischar ged Care is being handed over to at shift chage ([facility]) Patient feeling well, denies HO[place], dizziness, SOB or CP. Hb 9.9 today. BP still <100/60s after 1L NS bolus. Will give another L of NS and d/c home. 08/13/22 14:27 08/13/22 14:57 Outpatient infusion center will complete her liter of NS while giving her IV iron, will dc and patient will proceed to there. (ANNE-MARIE GTZ) Medical Desision Making - Risk of complications The pt has a mod risk of morbidity or mortality based on: Need for prescription drug management <ANNE-MARIE GTZ - Last Filed: 08/13/22 14:58> <DIONE CASTRO - Last Filed: 08/13/22 13:30> - Departure Departure Disposition: Home Critical Care Time: No <ANNE-MARIE GTZ - Last Filed: 08/13/22 14:58> - Departure Clinical Impression: Anemia, Hypotension, Dehydration Condition: Good Referrals: RAGHAV NOLAN [Primary Care Provider] - Follow up/PCP as directed Instructions: Anemia Caused by Low Iron
[2022-08-13 14:10] VITALS: BP 105/64; PULSE 101
== END 2022-08-13 15:12 | disposition home or self-care (01) ==
LOC: ED 10:04 → INFUSION 10:04 → EDSTATUS 10:51 → ED 15:12
DX: O99.012 Anemia complicating pregnancy, second trimester (principal); D50.9 Iron deficiency anemia, unspecified; Z3A.21 21 weeks gestation of pregnancy; I95.9 Hypotension, unspecified; E86.0 Dehydration; R53.1 Weakness
CPT/HCPCS: 36000; 36415; 80048; 84443; 85025; 96365; 99284; J1756

== ENCOUNTER 2022-10-09 15:12 | Observation (INO) | payer OTHER ==
[2022-10-09 16:25] VITALS: BP 98/61; PULSE 111; O2SAT 96
== END 2022-10-09 16:10 | disposition home or self-care (01) ==
LOC: OB.NST 15:12 → OB 15:30
PROVIDERS: ADMIT Obstetrics & Gynecology; ATTEND Obstetrics & Gynecology
DX: Z34.83 Encounter for supervision of other normal pregnancy, third trimester (principal); Z3A.29 29 weeks gestation of pregnancy
CPT/HCPCS: G0378; G0379

== ENCOUNTER 2022-11-28 00:15 | Observation (INO) | payer OTHER ==
[2022-11-28 00:59] VITALS: PULSE 129; O2SAT 97
[2022-11-28 01:00] LABS: Appearance Clear (Clear); Bacteria None Seen /HPF (None Seen); Bilirubin Negative (Negative); Blood Negative (Negative); Epithelial Cells Rare /HPF (None Seen); Glucose, Urine Negative (Negative); Hyaline Casts NONE SEEN /LPF (0-2); Ketones Negative (Negative); Leukocyte Esterase Moderate (Negative); Nitrite Negative (Negative); Protein,Urine Dip Trace (Negative); RBC 0-2 /HPF (0-5); Specific Gravity 1.015 (1.005-1.030)
[2022-11-28 01:05] LABS: ADD URINE CULTURE? NO (NO)
[2022-11-28 01:09] LABS: Amphetamine,Urine NEGATIVE (NEGATIVE); Barbiturate,Urine NEGATIVE (NEGATIVE); Benzodiazepine,Urine NEGATIVE (NEGATIVE); Cocaine,Urine NEGATIVE (NEGATIVE); Methadone,Urine NEGATIVE (NEGATIVE); Opiate,Urine NEGATIVE (NEGATIVE); PCP,Urine NEGATIVE (NEGATIVE); THC,Urine NEGATIVE (NEGATIVE)
[2022-11-28 01:59] VITALS: BP 108/72
== END 2022-11-28 02:15 | disposition home or self-care (01) ==
LOC: UNDOADMOB 00:15 → OB 00:15 → UNDODISOB 02:15
PROVIDERS: ADMIT Obstetrics & Gynecology; ATTEND Obstetrics & Gynecology
DX: Z34.83 Encounter for supervision of other normal pregnancy, third trimester (principal); Z3A.36 36 weeks gestation of pregnancy
CPT/HCPCS: 80307; 81001; 84112; G0378; G0379

== ENCOUNTER 2022-12-04 13:12 | Observation (INO) | payer OTHER ==
[2022-12-04 14:19] VITALS: BP 109/69; PULSE 93; O2SAT 100
[2022-12-04 15:06] LABS: Amphetamine,Urine NEGATIVE (NEGATIVE); Barbiturate,Urine NEGATIVE (NEGATIVE); Benzodiazepine,Urine NEGATIVE (NEGATIVE); Cocaine,Urine NEGATIVE (NEGATIVE); Methadone,Urine NEGATIVE (NEGATIVE); Opiate,Urine NEGATIVE (NEGATIVE); PCP,Urine NEGATIVE (NEGATIVE); THC,Urine NEGATIVE (NEGATIVE)
[2022-12-04 15:13] LABS: ADD URINE CULTURE? YES (NO); Appearance Clear (Clear); Bacteria Few /HPF (None Seen); Bilirubin Negative (Negative); Blood Negative (Negative); Epithelial Cells Moderate /HPF (None Seen); Glucose, Urine Negative (Negative); Hyaline Casts NONE SEEN /LPF (0-2); Ketones Negative (Negative); Leukocyte Esterase Moderate (Negative); Nitrite Negative (Negative); Protein,Urine Dip Trace (Negative); RBC 0-2 /HPF (0-5); WBC 21-50 /HPF (0-5)
== END 2022-12-04 16:00 | disposition home or self-care (01) ==
LOC: OB 13:12
PROVIDERS: ADMIT Obstetrics & Gynecology; ATTEND Obstetrics & Gynecology
DX: Z34.83 Encounter for supervision of other normal pregnancy, third trimester (principal); Z3A.37 37 weeks gestation of pregnancy
CPT/HCPCS: 80307; 81001; 87086; G0378; G0379

== ENCOUNTER 2023-11-01 17:02 | Emergency (ER) | payer OTHER ==
[2023-11-01 17:28] VITALS: TEMP 98.2; O2SAT 100
[2023-11-01] MEDS ORDERED: Sodium Chloride 0.9% 1000 ML 1,000 ML ONE ×2 (18:37→19:50)
[2023-11-01] MEDS: Sodium Chloride 0.9% 1000 ML 1,000 ML IV STA ×2 (18:41→19:53)
[2023-11-01 18:59] LABS: ALBUMIN 3.8 g/dL (3.5-5.0); ANION GAP 11.7 MEQ/L (5-15); BILIRUBIN,TOTAL 0.3 mg/dL (0.2-1.3); Calcium 8.9 mg/dL (8.4-10.2); Creatinine 1 0.56 mg/dL (0.52-1.04); EST GLOMERULAR FILTRATION RATE 126.6 ML/MIN; Potassium 3.4 mmol/L (3.5-5.1); Total Protein 7.2 g/dL (6.3-8.2)
[2023-11-01 19:54] VITALS: RESP 18
--- NOTE | 2023-11-01 19:56 | ERPHSYRPT ---
- History of Present Illness Time Seen by Provider: 11/01/23 18:00 Source: patient Exam Limitations: no limitations, clinical condition Patient Subjective Stated Complaint: syncopal episodes Triage Nursing Assessment: patient states that she has syncopal episodes that she can feel coming on. she states that she experienced these same episodes dur ing her previous and she saw a diamond grader for. she states she never was given a formal diagnosis that her diamond grader reccommended that she stayed hydrated. her follow up appointment is 11/23/23. her symptoms include: light headed, shaky, tunnel vision, hearing loss, hot flashes, tachycardia, faint Timing/Duration: today Severity: mild Modifying Factors: Improves With: other Associated Symptoms: denies symptoms Allergies/Adverse Reactions: Penicillins Allergy (Verified 11/28/22 01:39) Anaphylactic Reaction not sure promethazine [From Phenergan] Adverse Reaction (Verified 05/14/22 12:10) Muscle Aches Home Medications: Pnv No.95/Ferrous Fum/Folic AC [ Vitamins Tablet] 1 tab PO DAILY 05/14/22 [History] Docusate Sodium [Stool Softener] 100 mg PO TID PRN 12/04/22 [History] Ferrous Sulfate, Dried [Iron] 1 mg PO DAILY 12/04/22 [History] Hx Tetanus, Diphtheria Vaccination/Date Given: Yes Hx Influenza Vaccination/Date Given: No Hx Pneumococcal Vaccination/Date Given: No Immunizations Up to Date: Yes Travel Risk - International Travel Have you traveled outside of the country in past 3 weeks: No - Emerging Infectious Disease Are you exhibiting symptoms associated with any current EIDs: No - Review of Systems Eyes: No Symptoms Ears, Nose, & Throat: No Symptoms Respiratory: No Symptoms Cardiac: No Symptoms Abdominal/Gastrointestinal: No Symptoms Genitourinary Symptoms: No Symptoms Musculoskeletal: No Symptoms Skin: No Symptoms Neurological: No Symptoms Psychological: No Symptoms Endocrine: No Symptoms Hematologic/Lymphatic: No Symptoms Immunological/Allergic: No Symptoms - Past Medical History Pertinent Past Medical History: No Neurological History: No Pertinent History ENT History: No Pertinent History Cardiac History: No Pertinent History Respiratory History: No Pertinent History Endocrine Medical History: No Pertinent History Musculoskeletal History: No Pertinent History GI Medical History: No Pertinent History History: No Pertinent History Psycho-Social History: Anxiety, Depression Female Reproductive Disorders: No Pertinent History Other Medical History: Anemia - recieved iron infusions this - Past Surgical History Past Surgical History: No Neuro Surgical History: No Pertinent History Cardiac: No Pertinent History Respiratory: No Pertinent History Gastrointestinal: Cholecystectomy Genitourinary: No Pertinent History Musculoskeletal: No Pertinent History Female Surgical History: No Pertinent History Other Surgical History: [place] teeth removed Significant Family History: no pertinent family hx - Female History Hx Now: Yes Gestational Age: 19 weeks - Social History Smoking Status: Never smoker How long have you smoked: 1 Exposure to second hand smoke: No Drug Use: none Patient Lives Alone: No - Nursing Vital Signs Nursing Vital Signs: Initial Vital Signs Temperature 98.2 F 11/01/23 17:17 Pulse Rate 110 H 11/01/23 17:17 Respiratory Rate 16 11/01/23 17:17 Blood Pressure 111/77 11/01/23 17:17 O2 Sat by Pulse Oximetry 100 11/01/23 17:17 Pain Scale Pain Intensity 0 - Physical Exam General Appearance: no apparent distress Eye Exam: PERRL/EOMI Ears, Nose, Throat Exam: normal ENT inspection Neck Exam: normal inspection Respiratory Exam: normal breath sounds Cardiovascular Exam: regular rate/rhythm Gastrointestinal/Abdomen Exam: soft Pelvic Exam: not done SpO2: 100 Ordered Tests: Active Orders 24 hr Category Date Time Status CMP Stat Lab 11/01/23 18:40 Completed Medication Summary Discontinued Medications Generic Name Dose Route Start Last Admin Trade Name Frankie PRN Reason Stop Dose Admin Sodium Chloride 1,000 mls @ 999 mls/hr 11/01/23 18:31 11/01/23 18:41 Sodium Chloride 0.9% 1000 Ml IV 11/01/23 19:31 999 mls/hr .Q1H1M STA Administration Sodium Chloride 1,000 mls @ 999 mls/hr 11/01/23 18:32 Sodium Chloride 0.9% 1000 Ml IV 11/01/23 19:32 .Q1H1M STA Sodium Chloride Confirm 11/01/23 18:37 Sodium Chloride 0.9% 1000 Ml Administered 11/01/23 18:38 Dose 1,000 mls @ ud .ROUTE .STK-MED ONE Lab/Rad Data: Laboratory Result Diagrams 11/01/23 18:40 Laboratory Results 11/01/23 Range/Units 18:40 Sodium 138 (135-145) mmol/L Potassium 3.4 L (3.5-5.1) mmol/L Chloride 105 (98-107) mmol/L Carbon Dioxide 24 (22-30) mmol/L Anion Gap 11.7 (5-15) MEQ/L BUN 7 (7-17) mg/dL Creatinine 0.56 (0.52-1.04) mg/dL Estimated GFR 126.6 ML/MIN Glucose 90 (74-106) mg/dL Calcium 8.9 (8.4-10.2) mg/dL Total Bilirubin 0.30 (0.2-1.3) mg/dL AST 17 (14-36) U/L ALT 13 (0-35) U/L Alkaline Phosphatase 54 (38-126) U/L Serum Total Protein 7.2 (6.3-8.2) g/dL Albumin 3.8 (3.5-5.0) g/dL - Progress Progress Note: patient was given 2 liters of iv fluids and informed of her results and informed of the need to stay hydrated and follow up with her wardrobe specialty worker and pmd. patient feels better and feels comfortable going home 11/01/23 19:53 Medical Desision Making - Diagnostic Testing Radiological Interpretation: Reviewed by me (patient will be given one dose of potassium prior to discharge) - Departure Departure Disposition: Home Clinical Impression: Dehydration after exertion Condition: Good Critical Care Time: No
[2023-11-01] MEDS: Klor Con PO ONE (20:48)
[2023-11-01] MEDS ORDERED: Klor Con ONE (20:48)
[2023-11-01 20:54] VITALS: BP 108/69; PULSE 89
== END 2023-11-01 20:56 | disposition home or self-care (01) ==
LOC: ED 17:02
DX: E86.0 Dehydration (principal); Z33.1 Pregnant state, incidental; R55 Syncope and collapse; Z79.899 Other long term (current) drug therapy
CPT/HCPCS: 36415; 80053; 93005; 96360; 99284; A9270-GY

== ENCOUNTER 2024-03-06 11:31 | Observation (INO) | payer OTHER ==
[2024-03-06 12:06] LABS: Appearance Clear (Clear); Bacteria None Seen /HPF (None Seen); Bilirubin Negative (Negative); Blood Negative (Negative); Epithelial Cells Few /HPF (None Seen); Glucose, Urine Negative (Negative); Hyaline Casts NONE SEEN /LPF (0-2); Ketones Negative (Negative); Leukocyte Esterase Trace (Negative); Nitrite Negative (Negative); Protein,Urine Dip Negative (Negative); RBC 0-2 /HPF (0-5); Specific Gravity 1.015 (1.005-1.030); Urobilinogen 0.2 mg/dL (0.2)
[2024-03-06 12:16] VITALS: BP 121/77; PULSE 109; RESP 16; TEMP 99.4; O2SAT 100
== END 2024-03-06 14:25 | disposition home or self-care (01) ==
LOC: OB 11:31
PROVIDERS: ADMIT Obstetrics & Gynecology; ATTEND Obstetrics & Gynecology
DX: Z34.83 Encounter for supervision of other normal pregnancy, third trimester (principal); Z3A.37 37 weeks gestation of pregnancy
CPT/HCPCS: 81001; G0378; G0379

== ENCOUNTER 2024-03-12 16:15 | Observation (INO) | payer OTHER ==
[2024-03-12 17:57] VITALS: BP 111/73; PULSE 107; RESP 14; TEMP 98.1; O2SAT 99
== END 2024-03-12 17:15 | disposition home or self-care (01) ==
LOC: OB 16:15
PROVIDERS: ADMIT Obstetrics & Gynecology; ATTEND Obstetrics & Gynecology
DX: Z34.83 Encounter for supervision of other normal pregnancy, third trimester (principal); Z3A.38 38 weeks gestation of pregnancy
CPT/HCPCS: G0378; G0379

== ENCOUNTER 2024-03-13 02:00 | Inpatient (IN) | payer OTHER ==
[2024-03-13] MEDS: Lactated Ringers 1,000 ML IV ONE (03:20)
[2024-03-13] MEDS ORDERED: XYLOCAINE 1% HCL 20 ML MDV IJ PRN (04:17)
[2024-03-13] MEDS ORDERED: Zofran 4 MG/2 ML VIAL IV PRN (04:17)
[2024-03-13] MEDS: STADOL 2 MG IV PRN (04:29)
[2024-03-13] MEDS: Lactated Ringers 1,000 ML IV SCH (04:29)
[2024-03-13 04:40] LABS: Absolute Neutrophil Ct (ANC) 8.34 x10^3/uL (1.56-6.13); BASOPHIL % 0.3 % (0.1-1.2); Basophil (Absolute #) 0.04 x10^3/uL (0.01-0.08); Eosinophil % 0.8 % (0.7-5.8); Hematocrit 29.5 % (34.1-44.9); Hemoglobin 9.1 g/dL (11.2-15.7); IMMATURE GRAN # 0.14 x10^3u/L (0.001-0.031); IMMATURE GRAN % 1.1 % (0.001-0.429); Lymphocyte (Absolute #) 3.17 x10^3/uL (1.18-3.74); Lymphocytes % 25.3 % (19.3-51.7); Mean Cell Volume 81.9 fL (79.4-94.8); Mean Corpuscular Hemoglobin 25.3 pg (25.6-32.2); Mean Corpuscular Hgb Concent. 30.8 g/dL (32.2-35.5); Mean Platelet Volume 11.4 fL (9.4-12.3); Monocyte (Absolute #) 0.75 x10^3/uL (0.24-0.86); Neutrophil % 66.5 % (34.0-71.1); Platelet Count 307 x10^3/uL (182-369); Red Cell Distribution Width 16.4 % (11.7-14.4); White Blood Count 12.5 x10^3/uL (3.98-10.04)
[2024-03-13 05:28] LABS: ABO TYPING A; Antibody Screen NEGATIVE (NEGATIVE); RH TYPING POSITIVE
[2024-03-13] MEDS ORDERED: Lactated Ringers 1,000 ML IV ONE (06:44)
[2024-03-13] MEDS: FENTANYL 2 MCG-BUPIV 0.125%-NS 250 ML Epidur 250 ML EPIDURAL SCH (07:22)
[2024-03-13] MEDS: Ephedrine Sulfate 50 MG/ML IV PRN (08:43)
[2024-03-13] MEDS: PITOCIN 30 UNITS/ LR 500 ML 30 UNITS/500 ML PLAST..BAG IV SCH (09:30)
[2024-03-13] MEDS: Dermoplast Spray TP PRN (12:42)
[2024-03-13] MEDS: MOTRIN 400 MG PO PRN (17:02)
[2024-03-13] MEDS: TUCKS TP PRN (17:02)
[2024-03-13] MEDS: TYLENOL EXTRA STRENGTH 500 MG PO PRN (20:45)
[2024-03-13] MEDS: Docusate Sodium 100 MG PO SCH (20:45)
[2024-03-14 05:01] LABS: Absolute Neutrophil Ct (ANC) 7.78 x10^3/uL (1.56-6.13); BASOPHIL % 0.3 % (0.1-1.2); Basophil (Absolute #) 0.03 x10^3/uL (0.01-0.08); Eosinophil % 0.6 % (0.7-5.8); Eosinophil (Absolute #) 0.07 x10^3/uL (0.04-0.36); Hematocrit 26.2 % (34.1-44.9); IMMATURE GRAN # 0.12 x10^3u/L (0.001-0.031); Lymphocyte (Absolute #) 3.38 x10^3/uL (1.18-3.74); Lymphocytes % 28.3 % (19.3-51.7); Mean Cell Volume 81.6 fL (79.4-94.8); Mean Corpuscular Hemoglobin 24.9 pg (25.6-32.2); Mean Corpuscular Hgb Concent. 30.5 g/dL (32.2-35.5); Mean Platelet Volume 10.5 fL (9.4-12.3); Monocyte (Absolute #) 0.56 x10^3/uL (0.24-0.86); Monocytes % 4.7 % (4.7-12.5); Neutrophil % 65.1 % (34.0-71.1); Platelet Count 256 x10^3/uL (182-369); Red Blood Count 3.21 x10^6/uL (3.93-5.22); Red Cell Distribution Width 16.8 % (11.7-14.4); White Blood Count 11.9 x10^3/uL (3.98-10.04)
[2024-03-14 07:13] LABS: RPR Non Reactive (Non Reactive)
--- NOTE | 2024-03-14 07:46 | PCM.NOTE ---
Date and Time: 03/14/24743 Subjective Assessment: ppd 1 sp pt resting in bed and doing well able to ambulate and tolerate diet vss afebrile abd; soft uterus; firm lochia; mild a/p sp ppd 1 will anticipate discharge today however will await to see if baby cleared for discharge should fu in office in 3 wks Objective Data Vital Signs: Vital Signs - 24 hr Temp Pulse Resp BP BP Pulse Ox 03/14/24 02:00 97.5 F 64 18 112/64 98 03/13/24 20:00 98.9 F 95 H 20 97/55 97 03/13/24 16:26 89 107/76 03/13/24 14:30 100 H 16 108/69 03/13/24 13:00 110 H 18 112/65 03/13/24 11:15 97.5 F 82 18 97/66 100 03/13/24 10:55 97.5 F 70 20 102/64 100 03/13/24 10:47 88 20 103/64 100 03/13/24 10:40 97.5 F 75 18 107/66 100 03/13/24 10:20 97.5 F 92 H 20 109/69 98 03/13/24 10:00 88 20 103/64 100 03/13/24 09:45 88 20 103/64 100 03/13/24 09:30 78 20 90/57 100 03/13/24 09:00 115 H 18 93/60 85/59 99 03/13/24 08:00 99 H 16 87/58 100 Pain Assessment - Last Documented Pain Intensity [Bilateral] 5 Pain Intensity 1 Pain Scale Used 0-10 Pain Scale Intake and Output: Intake & Output 03/11/24 03/12/24 03/13/24 03/14/24 11:59 11:59 11:59 11:59 Intake Total 4400 1000 Output Total 400 Balance 4000 1000 Weight 69.853 kg 69.853 kg Lab Results: Lab Results-Last 24 Hours 03/13/24 03/14/24 Range/Units 02:55 04:55 WBC 11.9 H (3.98-10.04) x10^3/uL RBC 3.21 L (3.93-5.22) x10^6/uL Hgb 8.0 L (11.2-15.7) g/dL Hct 26.2 L (34.1-44.9) % MCV 81.6 (79.4-94.8) fL MCH 24.9 L (25.6-32.2) pg MCHC 30.5 L (32.2-35.5) g/dL RDW 16.8 H (11.7-14.4) % Plt Count 256 (182-369) x10^3/uL MPV 10.5 (9.4-12.3) fL Gran % 65.1 (34.0-71.1) % Immature Gran % (Auto) 1.0 H (0.001-0.429) % Nucleat RBC Rel Count 0.0 (0.00-0.2) % Eos # (Auto) 0.07 (0.04-0.36) x10^3/uL Immature Gran # (Auto) 0.12 H (0.001-0.031) x10^3u/L Absolute Lymphs (auto) 3.38 (1.18-3.74) x10^3/uL Absolute Monos (auto) 0.56 (0.24-0.86) x10^3/uL Absolute Nucleated RBC 0.00 (0.00-0.012) x10^3u/L Lymphocytes % 28.3 (19.3-51.7) % Monocytes % 4.7 (4.7-12.5) % Eosinophils % 0.6 L (0.7-5.8) % Basophils % 0.3 (0.1-1.2) % Absolute Granulocytes 7.78 H (1.56-6.13) x10^3/uL Basophils # 0.03 (0.01-0.08) x10^3/uL RPR Non Reactive (Non Reactive) Assessment/Plan (1) Vaginal delivery Current Visit: Yes Status: Acute Code(s): O80 - ENCOUNTER FOR FULL-TERM UNCOMPLICATED DELIVERY
[2024-03-14] MEDS: FERREX 150 PO SCH (09:11)
--- NOTE | 2024-03-14 12:10 | PCM.DS ---
Discharge Summary Date of Admission: 03/13/24 09:02 Admitting Physician: GILMER GOVEA DO Consults: Consults on Case 03/13/24 06:45 Notify Anesthesia Provider PRN 03/13/24 12:31 Navigation ONCE Primary Care Provider: NO FAMILY DOCTOR Allergies Allergies Penicillins Allergy (Verified 11/28/22 01:39) Anaphylactic Reaction not sure promethazine [From Phenergan] Adverse Reaction (Verified 05/14/22 12:10) Muscle Aches Hospital Summary - Hospital Course Hospital Course: pt admitted on mar 13 at 39 wks gestation for pitocin induction and subsequently delivered live baby boy without complication with nuchal cord x 1 and reduced at tiime of delivery. perineum intact at time of delivery. during period did well able to ambulate and tolerate diet with stable hgb at 8.0 rx will be sent for iron sulfate 325 bid daily for 30 days with continuation of vitamins. all questions answered to her satisfaction and was advised to fu in office in 3 wks. - Vitals & Intake/Output Vital Signs: Vital Signs Temperature 98.4 F 03/14/24 08:00 Pulse Rate 74 03/14/24 08:00 Respiratory Rate 15 03/14/24 08:00 Blood Pressure 112/66 03/14/24 08:00 O2 Sat by Pulse Oximetry 98 03/14/24 08:00 Intake & Output: Intake & Output 03/12/24 03/13/24 03/14/24 03/15/24 11:59 11:59 11:59 11:59 Intake Total 4400 1000 Output Total 400 Balance 4000 1000 Weight 69.853 kg 69.853 kg - Lab Result Diagrams: 03/14/24 04:55 Lab Results-Last 24 Hrs: Lab Results-Last 24 Hours 03/13/24 03/14/24 Range/Units 02:55 04:55 WBC 11.9 H (3.98-10.04) x10^3/uL RBC 3.21 L (3.93-5.22) x10^6/uL Hgb 8.0 L (11.2-15.7) g/dL Hct 26.2 L (34.1-44.9) % MCV 81.6 (79.4-94.8) fL MCH 24.9 L (25.6-32.2) pg MCHC 30.5 L (32.2-35.5) g/dL RDW 16.8 H (11.7-14.4) % Plt Count 256 (182-369) x10^3/uL MPV 10.5 (9.4-12.3) fL Gran % 65.1 (34.0-71.1) % Immature Gran % (Auto) 1.0 H (0.001-0.429) % Nucleat RBC Rel Count 0.0 (0.00-0.2) % Eos # (Auto) 0.07 (0.04-0.36) x10^3/uL Immature Gran # (Auto) 0.12 H (0.001-0.031) x10^3u/L Absolute Lymphs (auto) 3.38 (1.18-3.74) x10^3/uL Absolute Monos (auto) 0.56 (0.24-0.86) x10^3/uL Absolute Nucleated RBC 0.00 (0.00-0.012) x10^3u/L Lymphocytes % 28.3 (19.3-51.7) % Monocytes % 4.7 (4.7-12.5) % Eosinophils % 0.6 L (0.7-5.8) % Basophils % 0.3 (0.1-1.2) % Absolute Granulocytes 7.78 H (1.56-6.13) x10^3/uL Basophils # 0.03 (0.01-0.08) x10^3/uL RPR Non Reactive (Non Reactive) Micro Results-Entire Visit: Microbiology 03/13/24 10:09 Urine Culture - Preliminary Urine, Indwelling Catheter NO GROWTH TO DATE - Procedures and Test Procedures and Tests throughout Hospitalization: Therapy Orders & Screens 03/13/24 10:19 Standby ROUTINE Comment: Final Diagnosis/Problem List - Final Discharge Diagnosis/Problem (1) Vaginal delivery Current Visit: Yes Status: Acute Code(s): O80 - ENCOUNTER FOR FULL-TERM UNCOMPLICATED DELIVERY - Discharge Disposition: Home, Self-Care Condition: Stable Prescriptions: No Action Pnv No.95/Ferrous Fum/Folic AC [ Vitamins Tablet] 1 tab PO DAILY Ondansetron ODT 4 MG [Zofran Odt 4 mg] 4 mg PO Q6H PRN PRN #10 tablet PRN Reason: Vomiting Ferrous Sulfate, Dried [Iron] 1 mg PO DAILY Docusate Sodium [Stool Softener] 100 mg PO TID PRN PRN Reason: Constipation Follow up with: DOCTOR,NO FAMILY [Primary Care Provider] - GILMER GOVEA DO [ACTIVE STAFF] - 3 weeks (should fu in office in 3 wks should call me for any issues that may arise)
[2024-03-14] MEDS: Adacel Vial IM ONE (20:45)
[2024-03-14 21:53] VITALS: BP 108/73; PULSE 80; RESP 20; TEMP 98.5; O2SAT 99
== END 2024-03-14 21:10 | disposition home or self-care (01) | DRG 807 ==
LOC: OB 02:00 → OBSVTOIN 09:02 → OB 09:02
PROVIDERS: ADMIT Obstetrics & Gynecology; ATTEND Obstetrics & Gynecology
PROC: 10E0XZZ Delivery of Products of Conception, External Approach (ICD-10-PCS; principal; 2024-03-13)
DX: O69.81X0 Labor and delivery complicated by cord around neck, without compression, not applicable or unspecified (principal); Z37.0 Single live birth; Z3A.39 39 weeks gestation of pregnancy
CPT/HCPCS: 36415; 59400; 85025; 86592; 86850; 86900; 86901; 87086; 90715; 94799; G0378; G0379; J0595; J2590; A9270-GY

== ENCOUNTER 2025-05-12 21:12 | Emergency (ER) | payer OTHER ==
[2025-05-12 21:29] VITALS: TEMP 96.2; O2SAT 100
[2025-05-12] MEDS ORDERED: TORAdol 30 mg Injection ONE (21:35)
[2025-05-12] MEDS ORDERED: Valium 5 MG ONE (21:36)
[2025-05-12] MEDS: Valium 5 MG PO ONE (21:37)
[2025-05-12] MEDS: TORAdol 30 mg Injection IM ONE (21:37)
[2025-05-12 21:44] LABS: Glucose, Urine Negative (Negative); Protein,Urine Dip Negative (Negative); RBC 21-50 /HPF (0-5); WBC 0-2 /HPF (0-5)
[2025-05-12 21:56] LABS: HCG URINE TEST NEGATIVE (NEGATIVE)
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
--- NOTE | 2025-05-12 22:36 | XRAY ---
CLINICAL HISTORY: low back pain, injury COMPARISON: - TECHNIQUE: Multiple contiguous axial images were obtained through the lumbar spine without IV contrast. Sagittal and coronal reformatted images were obtained from the axial data. CT scan was performed according to ALARA (as low as reasonably achievable FINDINGS: Scoliosis of the lumbar spine is seen with convexity to the left side. Lumbar vertebral bodies are maintained in height and alignment. No vertebral destructive changes are seen. T11-T12: Evaluated on sagittal images only. No disc bulge, canal stenosis or neural foraminal narrowing. Subarticular recesses are patented. T12-L1: Evaluated on sagittal images only. No disc bulge, canal stenosis or neural foraminal narrowing. Subarticular recesses are patented. L1-L2: No disc bulge, canal stenosis or neural foraminal narrowing. Subarticular recesses are patented. L2-L3: No disc bulge, canal stenosis or neural foraminal narrowing. Subarticular recesses are patented. L3-L4: No disc bulge, canal stenosis or neural foraminal narrowing. Subarticular recesses are patented. L4-L5: No disc bulge, canal stenosis or neural foraminal narrowing. Subarticular recesses are patented. L5-S1: Diffuse disc bulge effacing thecal sac without nerve root compression. Paravertebral soft tissues are unremarkable. IMPRESSION: 1. No fracture seen in the lumbar spine. 2. Scoliosis of the lumbar spine is seen with convexity to the left side 3. Mild changes of lumbar spondylosis Electronically Signed by: Yan Christianson MD. (05/12/2025 22:34:38 EST)
[2025-05-12 22:51] VITALS: BP 106/69; PULSE 73; RESP 16
== END 2025-05-12 22:51 | disposition home or self-care (01) ==
LOC: ED 21:12
DX: R31.29 Other microscopic hematuria (principal); M54.50 Low back pain, unspecified; Z79.52 Long term (current) use of systemic steroids; Z79.899 Other long term (current) drug therapy